=== PATIENT | female | born 1930 | race Caucasian/White ===

== ENCOUNTER 2019-09-07 11:26 | Inpatient (IN) | payer OTHER ==
--- OUTSIDE RECORDS SUMMARY | 2019-09-07 11:35 | XMS REPORT ---
:1930 Author Organization [facility] t Address [address] [place] [address] Dr. Denis [address] [place] [address] Care Team Providers Name Role Phone NILS JARQUIN Unavailable Unavailable Problems This patient has no known problems. Allergies, Adverse Reactions, Alerts This patient has no known allergies or adverse reactions. Medications This patient has no known medications. Results Test Description Test Time Test Comments Text Results Atomic Results Result Comments POCT-ACT 2019-01-19 11:44:00 Test Item Value Reference Range Comments ACTIVATED CLOTTING TIME (BEAKER) 175 sec Reference Range: 74-137 seconds, (test code = 441) Baseline/TESTE D AT [address] [address]
--- OUTSIDE RECORDS SUMMARY | 2019-09-07 11:35 | XMS REPORT | Summary of Care ---
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 [place], [place] [address] [id number] [place], [place] Phone: [phone] Encounter Details Date Type Department Care Team Description 01/26/2019 Office Visit [facility] Milan Mann Post-op Follow-up Medicine Vascular MD Amari Surgery [address] [facility], [address] [facility] [address] [place] [address] [place] [address] [phone] Allergies No Known Allergiesdocumented as of this encounter (statuses as of 02/06/2019) Medications Medication Sig Dispensed Refills Start Date End Date Status clopidogrel (PLAVIX) TAKE 1 TABLET BY 3 12/08/2018 Active 75 MG tablet MOUTH EVERY DAY IN THE MORNING Coenzyme Q10 100 MG Take 100 mg by 0 Active CAPS mouth. levothyroxine levothyroxine 100 0 01/26/2018 Active (SYNTHROID) 100 MCG mcg tablet tablet verapamil (CALAN-SR) TAKE 1 TABLET BY 1 12/09/2018 Active 240 MG CR tablet MOUTH IN THE MORNING furosemide (LASIX) 20 TAKE ONE TABLET BY 1 9 Active MG tablet MOUTH EVERY MORNING montelukast TAKE 1 TABLET BY 1 12/05/2018 Active (SINGULAIR) 10 MG MOUTH EVERY MORNING tablet Levocetirizine TAKE 1 TABLET BY 1 10/20/2018 Active Dihydrochloride 5 MG MOUTH EVERY DAY TABS metoprolol metoprolol 0 03/11/2018 Active (TOPROL-XL) 50 MG XL succinate ER 50 mg tablet tablet,extended release 24 hr doxazosin (CARDURA) 2 doxazosin 2 mg 0 03/17/2018 Active MG tablet tablet fluticasone (FLONASE) fluticasone 0 Active 50 MCG/ACT nasal propionate 50 spray mcg/actuation nasal spray,suspension acetaminophen 325 mg Take 650 mg by 0 Active tablet mouth. 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 documented as of this encounter Last Filed Vital Signs Vital Sign Reading Time Taken Comments Blood Pressure 155/69 01/26/2019 4:27 PM CDT Pulse 82 01/26/2019 4:27 PM CDT Temperature - - Respiratory Rate - - Oxygen Saturation - - Inhaled Oxygen Concentration - - Weight - - Height - - Body Mass Index - - documented in this encounter Patient Instructions Patient InstructionsBrant Mcnamara CMA - 01/26/2019 5:25 PM CDTThank you for choosing [facility]. You may receive a survey in the mail. Please provide comments to let us know how we can improve our patient care. Instructions for your care: Patient will follow up in 3 months with dvt study Milan uPentes MD president and ceo Division of Vascular Surgery and Endovascular Therapy If you have any questions, please feel free to call us at: documented in this encounter Progress Notes Satya Harrison NP - 01/26/2019 3:15 PM CDT [facility] [address] [place] [address] [address], [place]. [address] Office: [phone] DATE OF VISIT: 01/26/19 PATIENT NAME: Martine Stoner : 1930 PCP / REFERRING PHYSICIAN: No primary care provider on file. / No primary physician on file. The patient presents today for a Vascular Surgery Postoperative Visit. The patient is status post L PFV, CFV, EIV, and CIV balloon angioplasty which was performed on 01/16/19 at the [facility]. The patient's leg symptoms have gradually improved. The patient's pain has decreased significantly with mild improvement noted in leg swelling. The patient denies fever, wound drainage, increasing redness, pus, increasing pain, increasing swelling. Post op problems reported: none. She has been able to ambulate without difficulty. BP 155/69 | Pulse 82 PHYSICAL EXAM: Constitutional: Well nourished, no signs of distress Cardiovascular: Normal rate, regular rhythm and normal heart sounds. No murmurs , rubs or gallops Pulmonary/Chest: Breath sounds normal. No respiratory distress. No adventitious sounds. Abdominal: Soft. No abdominal distension or tenderness. No masses palpated and no hepatomegaly. No organomegaly. No abdominal pulsatile mass noted. Musculoskeletal: Normal range of motion. No evidence of arthritis. Extremities: No edema, cyanosis or clubbing. Neurological: She is alert and oriented. No muscle weakness and normal gait. VASCULAR: Palpable femoral pulses were present bilaterally with palpable popliteal, dorsalis pedis and posterior tibial artery pulse. Saphenous vein ablation site and varicose vein incision are healing well without signs of infection. Diagnostic Sutdies: -The left CFV is partially compressible with mildly echogenic to echolucent like without dilation (subacute to chronic). -Partial compression of the central FV all the remaining POP and above segments are normal. -Bilateral tibial veins are difficult to ascertain. However, the left PTVs are seen normal. Assessment & Plan: S/p L PFV, CFV, EIV, and CIV balloon angioplasty- The patient is doing well. Patient is to continue with daily compression stocking. Patient is advised to continue with daily exercise regimen with 30 minutes of aerobic activity daily and five times per week. Return to vascular clinic in 3 month(s) with repeat venous duplex. Satya Harrison NP-Dali Nurse Practitioner - Vascular Surgery documented in this encounter Plan of Treatment Date Type Specialty Care Team Description 04/08/2019 Office Visit Hematology and Oncology Miki Maynard MD [address] [place] [address] [phone] 04/27/2019 Ancillary Procedure Vascular Surgery 04/27/2019 Office Visit Vascular Surgery Milan Mann MD [address] [facility] [address] [place], [place] [address] [phone] Name Type Priority Associated Diagnoses Order S chedule US VENOUS LEG Imaging Routine Deep vein thrombosis 1 Occu rrences starting BILATERAL (DVT) of non-extremity 01/26 until vein, unspecified 01/27/2020 chronicity Health Maintenance Due Date Last Done Comments MEDICARE AWV 1930 TETANUS SHOT (ADULT) 1946 FALL SCREEN 1996 OSTEOPOROSIS SCREENING 1996 PNEUMOVAX >=65 (PPSV23) 1996 PREVNAR >= 65 (PCV13) 1996 FLU VACCINE > 6 MONTHS 12/11/2018 documented as of this encounter Results Not on filedocumented in this encounter Visit Diagnoses Diagnosis Deep vein thrombosis (DVT) of non-extrem ity vein, unspecified chronicity - Primary documented in this encounter Insurance Payer Benefit Plan / Subscriber ID Effective Dates Phone Addre ss Type Group [employer] MED[employer]ARE PLAN PPO xxxxxxxx 2015-Present [address] Medicare - [employer] [place] [id number] documented as of this encounter"
--- NOTE | 2019-09-07 12:27 | RAD REPORT ---
EXAM DESCRIPTION: Rachid Single View09/07/2019 12:18 pm CLINICAL HISTORY: Shortness of breath COMPARISON: 2017 FINDINGS: Mild bilateral interstitial lung opacities. The heart is mildly to moderately enlarged IMPRESSION: Mild CHF
[2019-09-07 12:46] LABS: Absolute Lymphocytes (CBC) 0.9 K/uL (0.7-4.9); Basophils % 0.8 % (0-1.3); Hematocrit 42.4 % (36.0-45.0); Lymphocytes % 16.3 % (15.3-44.8); MPV 8.6 fL (7.6-11.3); RBC Red Blood Cell Count 4.28 M/uL (3.86-4.86)
[2019-09-07 12:55] LABS: Protime INR 1.02
[2019-09-07 13:05] LABS: Albumin 3.7 g/dL (3.4-5.0); Bilirubin Direct 0.2 mg/dL (0-0.2); Bilirubin Total 0.6 mg/dL (0.2-1.0); C-Reactive Protein 6.22 mg/L (<3.00); Ferritin 35.7 ng/mL (8-388); Potassium 4.3 mmol/L (3.5-5.1); Protein, Total 7.1 g/dL (6.4-8.2); Troponin (Emerg Dept Use Only) 0.02 ng/mL (0.0-0.045)
--- NOTE | 2019-09-07 14:25 | ER ---
Nurse's Notes [facility] Name: Martine Stoner Age: 89 yrs Sex: Female : 1930 Arrival Date: 09/07/2019 Time: 11:28 Bed 4 Private MD: Yobany Langston T Diagnosis: Hypoxemia;Dyspnea, unspecified;Pulmonary edema Presentation: 09/06 11:32 Chief complaint: Patient states: SOB that began yesterday. Denies cough, denies chest aa5 pain, denies vomiting. Reports nausea. 11:32 Coronavirus screen: Surgical mask placed on patient. Patient moved to private room, aa5 placed in contact and droplet isolation with eye protection until further assessment. Patient denies a cough. Patient reports shortness of breath or difficulty breathing. Patient denies measured and/or subjective temperature greater than 100.4F prior to today's visit. Patient denies travel on a cruise ship or to a country the [facility] currently lists as an affected area. Patient denies contact with known and/or suspected case of COVID-19. Ebola Screen: Patient negative for fever greater than or equal to 101.5 degrees Fahrenheit, and additional compatible Ebola Virus Disease symptoms. Initial Sepsis Screen: Does the patient meet any 2 criteria? RR > 20 per min. HR > 90 bpm. Yes Does the patient have a suspected source of infection? No. Patient's initial sepsis screen is negative. Risk Assessment: Do you want to hurt yourself or someone else? Patient reports no desire to harm self or others. Onset of symptoms was August 2019. 11:32 Method Of Arrival: Wheelchair aa5 11:32 Acuity: LEANDRA 2 aa5 Triage Assessment: 12:20 Respiratory: the patient has mild shortness of breath. sv Historical: - Allergies: 11:32 tolmetin; aa5 - PMHx: 11:32 DVT; High Cholesterol; Hypertension; Hypothyroidism; PE; aa5 - Immunization history:: Adult Immunizations up to date. - Family history:: not pertinent. - Social history:: Smoking status: Patient denies any tobacco usage or history of. - Hospitalizations: : No recent hospitalization is reported. Screenin:25 Abuse screen: Denies threats or abuse. Denies injuries from another. Nutritional jl7 screening: No deficits noted. Tuberculosis screening: No symptoms or risk factors identified. Fall Risk IV access (20 points). Total Orellana Fall Scale indicates No Risk (0-24 pts). Assessment: 12:20 General: Appears in no apparent distress. comfortable, well developed, Behavior is sv calm, cooperative, appropriate for age. Pain: Denies pain. Neuro: Level of Consciousness is awake, alert, obeys commands, Oriented to person, place, time, situation, Moves all extremities. Full function. Cardiovascular: Patient's skin is warm and dry. Pulses are palpable in right radial artery and left radial artery Rhythm is atrial fibrillation. Respiratory: Reports shortness of breath at rest on exertion Airway is patent Respiratory effort is even, unlabored, Respiratory pattern is symmetrical, tachypnea. Derm: Skin is pale. Musculoskeletal: Range of motion: intact in all extremities. 12:25 Reassessment: COVID-19 swab obtained and taken to the outside lab. sv 13:20 Reassessment: Patient appears in no apparent distress at this time. Patient and/or sv family updated on plan of care and expected duration. Pain level reassessed. Patient is alert, oriented x 3, equal unlabored respirations, skin warm/dry/pink. 14:35 Reassessment: Patient appears in no apparent distress at this time. Patient and/or sv family updated on plan of care and expected duration. Pain level reassessed. Patient is alert, oriented x 3, equal unlabored respirations, skin warm/dry/pink. 15:00 Reassessment: Dr Coles at the bedside. sv 16:03 Reassessment: Patient appears in no apparent distress at this time. Patient and/or sv family updated on plan of care and expected duration. Pain level reassessed. Patient is alert, oriented x 3, equal unlabored respirations, skin warm/dry/pink. 17:45 Reassessment: Patient appears in no apparent distress at this time. Patient and/or sv family updated on plan of care and expected duration. Pain level reassessed. Patient is alert, oriented x 3, equal unlabored respirations, skin warm/dry/pink. Vital Signs: 11:32 BP 141 / 98; Pulse 105; Resp 26 S; Temp 98.1(O); Pulse Ox 87% on R/A; Pain 0/10; aa5 11:34 Pulse Ox 95% on 2 lpm NC; aa5 12:00 BP 107 / 81; Pulse 84; Resp 25; Pulse Ox 99% on 2 lpm NC; sv 13:24 BP 121 / 79; Pulse 98; Resp 14; Pulse Ox 99% on 2 lpm NC; sv 14:30 BP 112 / 71; Pulse 80; Resp 26; Pulse Ox 99% on 2 lpm NC; sv 15:00 BP 110 / 70; Pulse 82; Resp 22; Pulse Ox 98% on 2 lpm NC; sv 16:02 BP 119 / 54; Pulse 74; Resp 22; Pulse Ox 98% on 2 lpm NC; sv 16:47 BP 110 / 68; Pulse 79; Resp 16; Temp 98; Pulse Ox 97% ; sv 17:47 BP 101 / 69; Pulse 72; Resp 17; Pulse Ox 98% on 2 lpm NC; sv ED Course: 11:28 Patient arrived in ED. ag5 11:28 Yobany Langston MD is Private Physician. ag5 11:32 Arm band placed on. aa5 11:34 Manoj Black MD is Attending Physician. rn 11:44 Nirmala Vega RN is Primary Nurse. sv 11:51 Triage completed. aa5 12:00 Patient has correct armband on for positive identification. Placed in gown. Bed in low jl7 position. Call light in reach. Side rails up X2. electronic device monitor on. Pulse ox on. NIBP on. Warm blanket given. 12:19 CXR XRAY In Process Unspecified. EDMS 12:23 First set of blood cultures drawn by me. Inserted saline lock: 20 gauge in right wrist, sv using aseptic technique. Blood collected. Flushed right with 5 ml normal saline. 12:24 EKG done, by eeg tech. reviewed by Manoj Black MD. at1 12:25 Flu and/or RSV swab sent to lab. Strep swab sent to lab. sv 12:29 Second set of blood cultures drawn by me. sv 12:46 Awaiting lab results, Awaiting radiology results. sv 14:24 Sourav Coles MD is Hospitalizing Provider. rn 16:03 Awaiting bed assignment. sv 17:53 No provider procedures requiring assistance completed. Patient admitted, IV remains in sv place. intact. Administered Medications: 14:35 Drug: Lasix 20 mg Route: IVP; Site: left wrist; sv 15:01 Follow up: Response: No adverse reaction sv Outcome: 14:24 Decision to Hospitalize by Provider. rn 17:53 Admitted to Tele accompanied by tech, via wheelchair, room 413, with oxygen, with sv chart, Report called to Janine FAJARDO 17:53 Condition: stable 17:53 Instructed on the need for admit. 18:01 Patient left the ED. sv Signatures: Dispatcher [employer] Nirmala Porter RN RN sv Manoj Black MD MD rn Calderon, Audri RN RN aa5 Arlyn Peralta, tele tech EKG Tat1 Migue Howard RN RN jl7 Alisa Mike ag5 Corrections: (The following items were deleted from the chart) 17:47 16:47 BP 110 / 68; Pulse 79bpm; Resp 16bpm; Pulse Ox 97%; sv sv
--- NOTE | 2019-09-07 14:25 | EDPHYS ---
Physician Documentation [facility] Name: Martine Stoner Age: 89 yrs Sex: Female : 1930 Arrival Date: 09/07/2019 Time: 11:28 Bed 4 Private MD: Yobany Langston T ED Physician Manoj Black HPI: 09/06 12:18 This 89 yrs old Female presents to ER via Wheelchair with complaints of rn Breathing Difficulty. 12:18 The patient has shortness of breath at rest, with light activity. Onset: The rn symptoms/episode began/occurred yesterday. Duration: The symptoms are continuous. The patient's shortness of breath is aggravated by exertion, light activity. Severity of symptoms: At their worst the symptoms were moderate in the emergency department the symptoms are unchanged. The patient has not experienced similar symptoms in the past. The patient has not recently seen a physician. Reports sob since yesterday, + subjective fever, reports feels similar to when had pneumonia in past. No trauma. NO urinary symptoms. NO hemoptysis. 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 . Historical: - Allergies: 11:32 tolmetin; aa5 - PMHx: 11:32 DVT; High Cholesterol; Hypertension; Hypothyroidism; PE; aa5 - Immunization history:: Adult Immunizations up to date. - Family history:: not pertinent. - Social history:: Smoking status: Patient denies any tobacco usage or history of. - Hospitalizations: : No recent hospitalization is reported. 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 rn 12:16 Constitutional: This is a well developed, well nourished patient who is awake, alert rn Head/Face: Normocephalic, atraumatic. ENT: dry MM, no stridor Cardiovascular: Tachycardic, irregular, intact and equal distal pulses Respiratory: Mild tachypnea, no retractions Abdomen/GI: soft, non-tender Skin: Warm, dry MS/ Extremity: Pulses equal, no cyanosis. Neurovascular intact. Full, normal range of motion. Equal circumference. Neuro: Awake and alert, GCS 15, oriented to person, place, time, and situation. Cranial nerves II-XII grossly intact. Motor strength 5/5 in all extremities. Sensory grossly intact. Vital Signs: 11:32 BP 141 / 98; Pulse 105; Resp 26 S; Temp 98.1(O); Pulse Ox 87% on R/A; Pain 0/10; aa5 11:34 Pulse Ox 95% on 2 lpm NC; aa5 12:00 BP 107 / 81; Pulse 84; Resp 25; Pulse Ox 99% on 2 lpm NC; sv 13:24 BP 121 / 79; Pulse 98; Resp 14; Pulse Ox 99% on 2 lpm NC; sv 14:30 BP 112 / 71; Pulse 80; Resp 26; Pulse Ox 99% on 2 lpm NC; sv 15:00 BP 110 / 70; Pulse 82; Resp 22; Pulse Ox 98% on 2 lpm NC; sv 16:02 BP 119 / 54; Pulse 74; Resp 22; Pulse Ox 98% on 2 lpm NC; sv 16:47 BP 110 / 68; Pulse 79; Resp 16; Temp 98; Pulse Ox 97% ; sv 17:47 BP 101 / 69; Pulse 72; Resp 17; Pulse Ox 98% on 2 lpm NC; sv MDM: 11:34 Patient medically screened. rn 14:22 Differential diagnosis: Chronic Obstructive Pulmonary Disease Myocardial Infarction rn pneumonia, Pneumothorax pulmonary edema, Pulmonary Embolism Sepsis flu, COVID-19, pulmonary edema, interstitial pneumonia. Data reviewed: vital signs, nurses notes, lab test result(s), EKG, radiologic studies, plain films, and as a result, I will admit patient. Test interpretation: by ED physician or midlevel provider: ECG, plain radiologic studies, CXR with bilateral interstitial edema. Counseling: I had a detailed discussion with the patient and/or guardian regarding: the historical points, exam findings, and any diagnostic results supporting the discharge/admit diagnosis, lab results, radiology results, the need for further work-up and treatment in the hospital. Response to treatment: the patient's symptoms have mildly improved after treatment, and as a result, I will admit patient. Admission orders: after a detailed discussion of the patient's condition and case, the admit orders are written by me. ED course: Pt with new diagnosis afib, rate controlled, admitted to Dr. Coles for afib/pulmonary edema, and hypoxemia. . 09/06 11:47 Order name: Blood Culture Adult (2) rn 09/06 11:47 Order name: BMP; Complete Time: 13:44 rn 09/06 11:47 Order name: C-Reactive Protein; Complete Time: 13:44 rn 09/06 11:47 Order name: CBC with Diff; Complete Time: 13:44 rn 09/06 11:47 Order name: COVID-19 rn 09/06 11:47 Order name: Ferritin; Complete Time: 13:44 rn 09/06 11:47 Order name: Flu; Complete Time: 13:44 rn 09/06 11:47 Order name: Lactate; Complete Time: 12:48 rn 09/06 11:47 Order name: LFT's; Complete Time: 13:44 09/06 11:47 Order name: Lipase; Complete Time: 13:44 rn 09/06 11:47 Order name: Procalcitonin; Complete Time: 13:44 09/06 11:47 Order name: PT-INR; Complete Time: 13:44 09/06 11:47 Order name: Ptt, Activated; Complete Time: 13:44 09/06 11:47 Order name: Strep; Complete Time: 13:44 09/06 11:47 Order name: Troponin (emerg Dept Use Only); Complete Time: 13:44 09/06 11:47 Order name: Urine Microscopic Only rn 09/06 12:15 Order name: BNP; Complete Time: 13:44 rn 09/06 13:04 Order name: Throat Culture EDUT 09/06 16:13 Order name: Thyroid Stimulating Hormone EDUT 09/06 16:13 Order name: CBC with Automated Diff EDUT 09/06 16:13 Order name: CBC with Automated Diff EDMS 09/06 16:13 Order name: Comprehensive Metabolic Panel EDUT 09/06 16:13 Order name: Comprehensive Metabolic Panel EDUT 09/06 16:13 Order name: Magnesium EDMS 09/06 16:13 Order name: Magnesium EDMS 09/06 16:13 Order name: Magnesium [facility] 09/06 16:13 Order name: Magnesium [facility] 09/06 16:13 Order name: Troponin I [facility] 09/06 16:13 Order name: Troponin I [facility] 09/06 16:13 Order name: Troponin I [facility] 09/06 11:47 Order name: CXR XRAY; Complete Time: 12:48 rn 09/06 11:47 Order name: EKG; Complete Time: 11:50 rn 09/06 11:47 Order name: Cardiac monitoring; Complete Time: 12:24 rn 09/06 11:47 Order name: Droplet/Contact Precautions; Complete Time: 12:24 rn 09/06 11:47 Order name: EKG - Nurse/Tech; Complete Time: 12:24 rn 09/06 11:47 Order name: IV Start; Complete Time: 12:24 rn 09/06 11:47 Order name: Labs collected and sent; Complete Time: 12:24 rn 09/06 11:47 Order name: O2 Per Protocol; Complete Time: 12:24 rn 09/06 11:47 Order name: O2 Sat Monitoring; Complete Time: 12:24 rn 09/06 14:21 Order name: Diet Heart Healthy; Complete Time: 14:22 aa5 09/06 16:13 Order name: CONS Pharmacy Consult [facility] 09/06 16:13 Order name: CONS Physician Consult [facility] 09/06 16:13 Order name: CONS Physician Consult [facility] 09/06 16:13 Order name: Physical Therapy Consult [facility] 09/06 16:13 Order name: Echo with Doppler [facility] 09/06 16:20 Order name: Social Service Consult [facility] EC:16 Rate is 100 beats/min. Rhythm is irregularly irregular. QRS [place] is Normal. QRS rn interval is normal. QT interval is normal. No Q waves. T waves are Normal. No ST changes noted. Clinical impression: Atrial Fibrillation. Interpreted by me. Reviewed by me. Administered Medications: 14:35 Drug: Lasix 20 mg Route: IVP; Site: left wrist; sv 15:01 Follow up: Response: No adverse reaction sv Disposition: 09/07/19 14:24 Hospitalization ordered by Sourav Coles for Inpatient Admission. Preliminary diagnosis are Hypoxemia, Dyspnea, unspecified, Pulmonary edema. - Bed requested for Telemetry/MedSurg (Inpatient). - Status is Inpatient Admission. sv - Condition is Stable. - Problem is new. - Symptoms have improved. Signatures: Dispatcher [employer] EDNirmala Blank, RN RN Jill José RN RN dw Nieto, Roman, MD MD rn Calderon, Urvashi, RN RN aa5 Corrections: (The following items were deleted from the chart) 12:28 12:16 Rate is 100 beats/min. Rhythm is irregularly irregular. QRS [place] is Normal. QRS rn interval is normal. QT interval is normal. No Q waves. T waves are Normal. No ST changes noted. Clinical impression: Atrial Fibrillation. Interpreted by me. Reviewed by me. rn 12:44 11:47 Ramos ordered. rn cristian 17:18 14:24 Hospitalization Ordered by Sourav Coles MD for Inpatient Admission. Preliminary dw diagnosis is Hypoxemia; Dyspnea, unspecified; Pulmonary edema. Bed requested for Telemetry/MedSurg (Inpatient). Status is Inpatient Admission. Condition is Stable. Problem is new. Symptoms have improved. rn 18:01 17:18 09/07/2019 14:24 Hospitalization Ordered by Sourav Coles MD for Inpatient sv Admission. Preliminary diagnosis is Hypoxemia; Dyspnea, unspecified; Pulmonary edema. Bed requested for Telemetry/MedSurg (Inpatient). Status is Inpatient Admission. Condition is Stable. Problem is new. Symptoms have improved. dw
[2019-09-07] MEDS ORDERED: FUROSEMIDE 20 MG/ 2ML VIAL ONE (14:29)
[2019-09-07] MEDS ORDERED: ONDANSETRON 4 MG/2 ML VIAL IV PRN (16:04)
[2019-09-07] MEDS ORDERED: ALBUTEROL 2.5 MG/3 ML NEB SOL NEB PRN (16:04)
[2019-09-07] MEDS ORDERED: MORPHINE 2 MG/ML SYR IV PRN (16:04)
[2019-09-07] MEDS ORDERED: LORAZEPAM 0.5 MG TABLET PO PRN (16:07)
[2019-09-07] MEDS ORDERED: HYDRALAZINE HCL 20 MG/ML VIAL IV PRN (16:07)
--- NOTE | 2019-09-07 16:17 | P.HP ---
Certification for Inpatient With expected LOS: >2 Midnights Patient will require the following post-hospital care: Home Health Services Practitioner: I am a practitioner with admitting privileges, knowledge of patient current condition, hospital course, and medical plan of care. Services: Services provided to patient in accordance with Admission requirements found in Title 42 Section 412.3 of the Code of Federal Regulations Patient History Date of Service: 09/07/19 Reason for admission: Shortness of breath History of Present Illness: 89-year-old female past medical history of HTN, DVT, residing in the community with the family, presented because of increasing shortness of breath since the last 1 week initially on exertion but currently at rest, shortness of breath associated with mild cough, no sputum. Patient denies any fever or chills. She denies any recent travel. She denies any calf pain. She has a history of right lower extremity DVT 2 years ago that was treated with to Lovenox. She is on show foul current home medication tsh she takes only 2 medications. She denies any headache or dizziness. On arrival in the ED she had low O2 sats in the 80s. She has been ruled out for covid 19 testing. Chest x-ray shows bilateral pulmonary congestive changes. EKG on presentation shows AFib. She does not have a history of AFib in the past. She admits to persistent lower extremity swelling. She denies any dysuria or flank pain although noted creatinine of 1.67. She is being admitted for CHF as well as new onset AFib Allergies tolmetin sodium [From Tolectin] Allergy (Severe, Verified 04/19/15 12:37) Shortness of breath Home Medications: Ascorbic Acid [Vitamin C*] 500 mg PO DAILY 04/19/15 Aspirin [Aspirin EC 81 MG] 81 mg PO DAILY 04/19/15 Fluticasone [Flonase 50MCG Nasal [place]*] 2 sprays NS DAILY PRN 04/19/15 Levothyroxine [Synthroid*] 100 mcg PO DAILY 04/19/15 Metoprolol Succinate [Toprol Xl*] 25 mg PO DAILY 04/19/15 Montelukast [Singulair*] 10 mg PO DAILY 04/19/15 Verapamil HCl [Verapamil ER] 240 mg PO DAILY 04/19/15 Acetaminophen 325 mg PO Q4H PRN 04/13/17 Cholecalciferol (Vitamin D3) [Vitamin D 5,000 IU Cap*] 5,000 unit PO DAILY 04/13/17 Cyanocobalamin (Vitamin B-12) [Vitamin B-12] 1,000 mcg PO DAILY 04/13/17 Doxazosin Mesylate 2 mg PO DAILY 04/13/17 Furosemide [Lasix*] 20 mg PO DAILY 04/13/17 Gluc Salas/Chondro Salas A/Vit C/Mn [Glucosamine-Chondroitin Cap] 750 mg PO BID 04/13/17 Ubidecarenone [Co Q-10] 100 mg PO DAILY 04/13/17 Enoxaparin Sodium [Lovenox 100 MG INJ*] 90 mg SQ Q12HR #90 syr 04/16/17 - Past Medical/Surgical History Diabetic: No -: Dyslipidemia -: DVT -: HTN -: Hypothyroidism -: Venous insufficiency -: Hip replacement -: Back infusion -: Hystrectomy -: Appendectomy -: TMJ mental plate both jaws - Family History Father -: Cancer Mother -: Hypertension - Social History Smoking Status: Never smoker Alcohol use: Yes CD- Drugs: No Caffeine use: Yes Place of Residence: Home Review of Systems 10-point ROS is otherwise unremarkable Physical Examination - Physical Exam General: Alert, In no apparent distress, Oriented x3, Obese HEENT: Atraumatic, Normocephalic, PERRLA, Mucous membr. moist/pink Neck: Supple, 2+ carotid pulse no bruit, JVD not distended Respiratory: Diminished, Crackles/rales Cardiovascular: Normal pulses, Normal S1 S2, Edema, Irregular heart rate/rhythm Capillary refill: <2 Seconds Gastrointestinal: Normal bowel sounds, Soft and benign, Non-distended, No ascites, No tenderness Musculoskeletal: No clubbing, Swelling Integumentary: No rashes, No breakdown Neurological: Normal speech, Normal strength at 5/5 x4 extr, Normal tone External genitalia: Edema - Studies Laboratory Data (last 24 hrs) 09/07/19 12:23: PT 12.0, INR 1.02, APTT 30.3 09/07/19 12:23: WBC 5.7, Hgb 14.0, Hct 42.4, Plt Count 237 09/07/19 12:23: Sodium 142, Potassium 4.3, BUN 24 H, Creatinine 1.67 H, Glucose 97, Total Bilirubin 0.6, AST 13 L, ALT 19, Alkaline Phosphatase 63, Lipase 116 Microbiology Data (last 24 hrs): 09/07/19 12:25 Nasopharnyx Coronavirus COVID-19 PCR - Final 09/07/19 12:25 Nasopharnyx Influenza Type A Antigen Screen - Final 09/07/19 12:25 Nasopharnyx Influenza Type B Antigen Screen - Final 09/07/19 12:25 Throat Group A Streptococcus Rapid Screen - Final Imagings Data: FINDINGS: Mild bilateral interstitial lung opacities. The heart is mildly to moderately enlarged IMPRESSION: Mild CHF Assessment and Plan - Problems (Diagnosis) (1) A-fib Current Visit: Yes Status: Acute (2) Diastolic CHF, acute on chronic Current Visit: Yes Status: Acute (3) CKD (chronic kidney disease) stage 3, GFR 30-59 ml/min Onset Date: 04/15/17 Current Visit: No Status: Chronic (4) HTN (hypertension) Onset Date: 04/15/17 Current Visit: No Status: Chronic Qualifiers: - Advance Directives Does patient have a Living Will: Yes Does patient have a Durable POA for Healthcare: Yes Physician Review: Patient Assessed, Agree with Above Assessment and Plan Physician Review Additional Text: Acute pulmonary edema-likely due to Diastalic CHF exacerbation -we start low-dose diuretics would be best b.i.d. -will obtain echo -will consult Cardiology -monitor intake and output -follow daily weight Atrial fibrillation-new onset, rate spontaneously improved from 100 to 80s now -will continue to monitor -we start anticoagulation with low-dose Eliquis Hypertension-controlled, home verapamil - given borderline low blood pressure, will hold off medications for now to allow for diuresis DVT prophylaxis-plan to start Eliquis l Disposition-possible 1-2 days Time Spent Managing Pts Care (In Minutes): 65
[2019-09-07 17:56] LABS: Thyroid Stimulating Hormone 1.35 uIU/mL (0.360-3.740); Troponin I 0.03 ng/mL (0.0-0.045)
[2019-09-07] MEDS: PANTOPRAZOLE 40MG TABLET PO SCH (19:23)
[2019-09-07] MEDS: CEFTRIAXONE/SWI 1gm 1 GM/10 ML SYR IV SCH (19:23)
[2019-09-07] MEDS: IPRATROPIUM BROM 0.5MG/2.5ML NEB SCH (20:00)
--- NOTE | 2019-09-07 20:12 | EKG ---
Test Date: 2019-09-07 Test Time: 12:10:33 Hearing Therapy Director: ANDRA MEASUREMENT RESULTS: Intervals: Rate: 100 TN: QRSD: 78 QT: 366 QTc: 472 [place]: P: TN: QRS: -1 T: 63 INTERPRETIVE STATEMENTS: Atrial fibrillation Abnormal ECG Compared to ECG 04/12/2017 17:05:11 Sinus rhythm no longer present Sinus arrhythmia no longer present Electronically Signed On 09-07-19 20:10:55 CDT by Tyler Johnson
[2019-09-07] MEDS: BUMETANIDE 1 MG/4 ML VIAL IV SCH (20:55)
[2019-09-07] MEDS: APIXABAN 2.5 MG TABLET PO SCH (20:55)
[2019-09-07 21:24] LABS: Urine Bacteria <20 /HPF (<20); Urine Culture Reflex Order REFLEXED; Urine Mucus 2+ /HPF (NONE SEEN); Urine RBC <5 /HPF (NONE SEEN)
[2019-09-08] MEDS: IPRATROPIUM BROM 0.5MG/2.5ML NEB SCH ×4 (01:35→20:20)
[2019-09-08 04:20] LABS: Absolute Lymphocytes (CBC) 0.8 K/uL (0.7-4.9); Basophils % 0.6 % (0-1.3); Hematocrit 39.7 % (36.0-45.0); Lymphocytes % 16.2 % (15.3-44.8); MPV 8.4 fL (7.6-11.3); RBC Red Blood Cell Count 3.98 M/uL (3.86-4.86)
[2019-09-08 04:35] LABS: Albumin 3.2 g/dL (3.4-5.0); Bilirubin Total 0.3 mg/dL (0.2-1.0); Magnesium 1.9 mg/dL (1.8-2.4); Potassium 4.6 mmol/L (3.5-5.1); Protein, Total 6.2 g/dL (6.4-8.2)
[2019-09-08] MEDS: LEVOTHYROXINE SOD 0.1 MG TAB PO SCH (05:48)
[2019-09-08] MEDS ORDERED: HOME MED 1 EA UNK (Levocetirizine Dihydrochloride [Allergy Relief] 5 MG) PO SCH (09:00)
[2019-09-08] MEDS: APIXABAN 2.5 MG TABLET PO SCH ×2 (09:04→21:35)
[2019-09-08] MEDS: CETIRIZINE HCL 5 MG TABLET PO SCH (09:04)
[2019-09-08] MEDS: PANTOPRAZOLE 40MG TABLET PO SCH ×2 (09:04→17:43)
[2019-09-08] MEDS: BUMETANIDE 1 MG/4 ML VIAL IV SCH ×2 (09:04→21:43)
[2019-09-08] MEDS: ASPIRIN EC 81 MG TAB PO SCH (09:04)
[2019-09-08] MEDS: METOPROLOL TAR 25 MG TAB PO SCH ×2 (10:23→17:43)
--- NOTE | 2019-09-08 11:14 | ECHO ---
HEIGHT: 5 ft 8 in WEIGHT: 210 lb 14.4 oz DATE OF STUDY: 09/08/[address]: Sourav Coles MD 2-DIMENSIONAL: YES M.MODE: YES DOPPLER: YES COLOR FLOW: YES TDS: PORTABLE: DEFINITY: BUBBLE STUDY: DIAGNOSIS: CEREBRAL VASCULAR ACCIDENT, RULE OUT VEGETATION CARDIAC HISTORY: CATHERIZATION: NO SURGERY: NO PROSTHETIC VALVE: NO PACEMAKER: NO MEASUREMENTS (cm) DIASTOLIC (NORMALS) SYSTOLIC (NORMALS) IVSd 1.1 (0.6-1.2) LA Diam 3.6 (1.9-4.0) LVEF 53% LVIDd 3.7 (3.5-5.7) LVIDs 2.7 (2.0-3.5) %FS 27% LVPWd 1.2 (0.6-1.2) Ao Diam 2.6 (2.0-3.7) 2 DIMENSIONAL ASSESSMENT: RIGHT ATRIUM: NORMAL LEFT ATRIUM: NORMAL RIGHT VENTRICLE: NORMAL LEFT VENTRICLE: NORMAL SIZE TRICUSPID VALVE: NORMAL MITRAL VALVE: MITRAL ANNULAR CALCIFICATION PULMONIC VALVE: NOT SEEN WELL AORTIC VALVE: SCLEROSIS PERICARDIAL EFFUSION: SMALL AORTIC ROOT: NORMAL LEFT VENTRICULAR WALL MOTION: HYPERDYNAMIC - NORMAL EJECTION FRACTION DOPPLER/COLOR FLOW: MILD TRICUSPID REGURGITATION. NORMAL RIGHT VENTRICULAR SYSTOLIC PRESSURE. COMMENTS: NORMAL LEFT VENTRICULAR SIZE AND EJECTION FRACTION. HYPERDYNAMIC LEFT VENTRICLE. SMALL PERICARDIAL EFFUSION. MITRAL ANNULAR CALCIFICATION. AORTIC SCLEROSIS, NO STENOSIS. NO OBVIOUS VEGETATION. TECHNOLOGIST: LIDIA DELEON
--- NOTE | 2019-09-08 12:57 | PN ---
Date of Progress Note: 09/08/2019 Ms. Stoner was admitted and seen on 09/06/2017. She was admitted by Dr. Coles. She was admitted fo r CHF, atrial fibrillation, acute renal failure. Overnight, she has done well. She is feeling a lot better than she felt yesterday. She is not having any chest pain. She had diuresed well on IV Bume x. She is known to have normal coronaries from the past. She is also known to have 100% occlusion o f her left internal carotid artery with 50% occlusion of her right carotid artery. Echocardiogram is pending. I think with her risk factors and her atrial fibrillation, which is rate controlled, I wou ld continue her verapamil and agree with Eliquis use at 2.5 mg b.i.d. We will see what her echo show s, but as far as I am concerned she can go home whenever it is okay with Dr. Coles. WILLIAM/CARLOS MANUEL Voice ID: [id number] Report ID: [id number]
--- NOTE | 2019-09-08 13:35 | P.PN ---
Subjective Date of Service: 09/08/19 Chief Complaint: Shortness of breath Subjective: No new changes, No C/O voiced, New changes, C/O voiced (of feeling warmth today -still elevated HR this am , improved after started on toprol) Physical Examination - Vital Signs Temperature: 98.5 F Blood Pressure: 118/59 Pulse: 98 Respirations: 27 Pulse Ox (%): 92 - Physical Exam General: Alert, In no apparent distress, Oriented x3 HEENT: Atraumatic, Normocephalic Neck: Supple, 2+ carotid pulse no bruit Respiratory: Crackles/rales (Improving bilateral) Gastrointestinal: Normal bowel sounds, Soft and benign, Non-distended, W/out succussion splash Neurological: Normal speech, Normal strength at 5/5 x4 extr - Studies Microbiology Data (last 24 hrs): 09/07/19 12:25 Nasopharnyx Coronavirus COVID-19 PCR - Final 09/07/19 12:25 Nasopharnyx Influenza Type A Antigen Screen - Final 09/07/19 12:25 Nasopharnyx Influenza Type B Antigen Screen - Final 09/07/19 12:25 Throat Group A Streptococcus Rapid Screen - Final Assessment And Plan - Current Problems (Diagnosis) (1) A-fib Current Visit: Yes Status: Acute (2) Diastolic CHF, acute on chronic Current Visit: Yes Status: Acute (3) CKD (chronic kidney disease) stage 3, GFR 30-59 ml/min Onset Date: 04/15/17 Current Visit: No Status: Chronic (4) HTN (hypertension) Onset Date: 04/15/17 Current Visit: No Status: Chronic Qualifiers: Physician Review: Patient Assessed, Agree with Above Assessment and Plan Physician Review Additional Text: Acute pulmonary edema-slowly improving -continue diuretics with Bumex -follow pending echo -cardiology evaluation with appreciated -likely due to Diastalic CHF exacerbation New onset Atrial fibrillation-improving with started metoprolol -continue low-dose Eliquis Hypertension-controlled, on metoprolol now, continue to hold home verapamil DVT prophylaxis-on Eliquis UTI-on empirical Rocephin, follow urine culture. Weakness-will consult PT/OT Disposition-possible in am if PT clears Time Spent Managing PTS Care (In Minutes): 35
--- NOTE | 2019-09-08 13:36 | CON ---
Date of Consultation: 09/07/2019 Reason For Consultation: Atrial fibrillation, acute renal failure, pulmonary edema. History Of Present Illness: Ms. Stoner is an 89-year-old woman. She has a history of hypertension, dy slipidemia, asthma, and since the hypothyroidism has had history of DVT and pulmonary embolus in the past. She came in with acute pulmonary edema, was noted to be in atrial fibrillation as well as mirtha l failure. Main complaint was shortness of breath. She denied any chest pain, nausea, vomiting, mac phoresis, PND, orthopnea, pedal edema, palpitations, or syncope. Past Medical History: As stated above. Allergies: TO TOLMETIN. Medications: At home include aspirin, Plavix, Lasix, doxazosin, Synthroid, Singulair, and verapamil. Review of Systems: Negative. Social History: Negative. Family History: Negative. Physical Examination: Vital Signs: She was in mild respiratory distress, atrial fibrillation, rate of 90, afebrile, blood pressure was 142/94. HEENT: Negative. Neck: Supple without any bruit, lymphadenopathy, JVD, or thyromegaly. Chest: Clear to auscultation and percussion on the right. She has some rales at the left base. Cardiac: Revealed atrial fibrillation. No murmurs, gallops, or rubs heard. Abdomen: Benign. Extremities: Revealed no clubbing, cyanosis, or edema. Diagnostic Data: Creatinine is 1.67. BNP is 5307. Her troponin was negative. Chest x-ray shows CH F. EKG showed atrial fibrillation, rate 100. She has had normal coronaries in the past by annabel gordillo in 2015. She also has known 100% left ICA and 50% right ICA that have not been followed since . Impression And Plan: 1.Acute on chronic diastolic congestive heart failure. She is on verapamil. She is on IV Bumex. I think we need to change her verapamil to a beta-quita. We need to continue IV Bumex and when she goes home, she should remain on Lasix. 2.Atrial fibrillation, probably chronic. I think she needs to be on a beta-quita and I agree with use of Eliquis 2.5 mg b.i.d. Echocardiogram is pending. 3.Hypertension. 4.Renal failure. Nephrology is following. 5.History of dyslipidemia. 6.History of hypothyroidism. 7.History of asthma. 8.History of pulmonary embolism and deep venous thrombosis. 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 Those have not been followed since. I think we need to continue diuresing her. Change with the beta-quita and continue the Eliquis, get an echocardiogram and we will see how she does in the morning. I think sometime down the road, i f she needs to have another carotid Doppler done, then we can do that as an outpatient. WILLIAM/CARLOS MANUEL Voice ID: [id number] Report ID: [id number]
--- NOTE | 2019-09-08 14:30 | P.CNS ---
Date of Consult: 09/08/19 Reason for Consult: Acute kidney injury/chronic kidney disease Requesting Physician: Sourav Coles Chief Complaint: Shortness of breath History of Present Illness: 89-year-old female patient with the medical hx significant for hypothyroidism, CHF, hypertension, atrial fibrillation, hyperlipidemia who was evaluated for episode of shortness of breath, found to have congestive heart failure exacerbation. She was started on diuretics and labs drawn revealed elevated creatinine with value of approximately 1.7. Cardiology was consulted for care and she was found to have diastolic dysfunction. In view of elevated creatinine there was concern for acute kidney injury/chronic kidney disease. The patient was asked to be evaluated by Nephrology. She does not have any personal history of kidney failure in the past. She denies use of nonsteroidal anti-inflammatory drugs. She denies any uremic symptomatology of nausea, vomiting, itching, excessive lethargy, abnormal taste in the month. Allergies tolmetin sodium [From Tolectin] Allergy (Severe, Verified 04/19/15 12:37) Shortness of breath Home medications list reviewed: Yes Home Medications: Ascorbic Acid [Vitamin C*] 500 mg PO DAILY 04/19/15 Fluticasone [Flonase 50MCG Nasal [place]*] 2 sprays NS DAILY PRN 04/19/15 Levothyroxine [Synthroid*] 100 mcg PO DAILY 04/19/15 Montelukast [Singulair*] 10 mg PO DAILY 04/19/15 Acetaminophen 325 mg PO Q4H PRN 04/13/17 Cholecalciferol (Vitamin D3) [Vitamin D 5,000 IU Cap*] 5,000 unit PO DAILY 04/13/17 Gluc Salas/Chondro Salas A/Vit C/Mn [Glucosamine-Chondroitin Cap] 750 mg PO BID 04/13/17 Ubidecarenone [Co Q-10] 100 mg PO DAILY 04/13/17 Clopidogrel Bisulfate [Plavix*] 75 mg PO DAILY 09/07/19 Levocetirizine Dihydrochloride [Allergy Relief] 5 mg PO DAILY 09/07/19 Amox/Clavulanate [Augmentin 500-125 mg Tab*] 500 mg PO BID #6 tab 09/09/19 Apixaban [Eliquis *] 2.5 mg PO BID #60 tablet 09/09/19 Bumetanide [Bumex] 1 mg PO BID #60 tablet 09/09/19 Magnesium Chloride [Mag Delay] 64 mg PO BID #60 tablet. 09/09/19 Metoprolol Tartrate [Lopressor*] 50 mg PO BID 6AM 6PM #120 tab 09/09/19 Pantoprazole [Protonix Tab*] 40 mg PO BIDAC tab 09/09/19 Saliva Stimulant Agents Comb.3 [Biotene Moisturizing Mouth] 44.3 ml MM QID 30 Days #1 bottle 09/09/19 - Past Medical/Surgical History Diabetic: No -: Dyslipidemia -: DVT -: HTN -: Hypothyroidism -: Venous insufficiency -: pulmonary embolism -: chronic kidney disease -: Hip replacement left -: Back infusion -: Hysterectomy -: Appendectomy -: TMJ mental plate both jaws - Family History Father Medical History: Cancer Mother Medical History: Hypertension - Social History Alcohol use: No CD- Drugs: No Caffeine use: No Place of Residence: Home Physical Examination Temp Pulse Resp BP Pulse Ox 98.5 F 98 H 27 H 118/59 L 92 09/08/19 13:35 09/08/19 13:35 09/08/19 13:35 09/08/19 13:35 09/08/19 13:35 General: Alert, Oriented x3 HEENT: Atraumatic, PERRLA Respiratory: Normal air movement Cardiovascular: No edema, Regular rate/rhythm, Normal S1 S2 Gastrointestinal: Normal bowel sounds Musculoskeletal: No clubbing Neurological: Normal speech, Normal strength at 5/5 x4 extr, Cranial nerves 3-12 intact Conclusions/Impression: CKD stage 3 vs CARLOS. UTI Hypertension Congestive heart failure exacerbation Hypothyroidism Atrial fibrillation. Plan: Present episode of elevated creatinine is deemed possibly due to cardiorenal syndrome type 2, however there is possibility of cardiorenal syndrome type 1 from acute congestive heart failure. She had been started on diuretics and she has improved significantly. Creatinine labs remained stable since admission though elevated. Will continue to avoid nephrotoxic medications and dose medications for her eGFR. We will monitor creatinine trend closely and obtain PTH, phosphorus level.
[2019-09-08] MEDS ORDERED: ALBUTEROL 2.5 MG/3 ML NEB SOL NEB PRN (17:00)
[2019-09-08] MEDS: CEFTRIAXONE/SWI 1gm 1 GM/10 ML SYR IV SCH (17:44)
[2019-09-09] MEDS: IPRATROPIUM BROM 0.5MG/2.5ML NEB SCH ×4 (02:30→19:40)
[2019-09-09 04:20] LABS: Absolute Lymphocytes (CBC) 1.5 K/uL (0.7-4.9); Basophils % 0.6 % (0-1.3); Hematocrit 38.3 % (36.0-45.0); Lymphocytes % 27.2 % (15.3-44.8); MPV 8.2 fL (7.6-11.3); RBC Red Blood Cell Count 3.87 M/uL (3.86-4.86)
[2019-09-09 04:28] LABS: Bilirubin Total 0.4 mg/dL (0.2-1.0); Magnesium 1.6 mg/dL (1.8-2.4); Potassium 3.7 mmol/L (3.5-5.1); Protein, Total 5.7 g/dL (6.4-8.2)
[2019-09-09] MEDS: METOPROLOL TAR 25 MG TAB PO SCH ×2 (06:18→16:52)
[2019-09-09] MEDS: LEVOTHYROXINE SOD 0.1 MG TAB PO SCH (06:20)
[2019-09-09] MEDS: BUMETANIDE 1 MG/4 ML VIAL IV SCH ×3 (08:42→18:29)
[2019-09-09] MEDS: APIXABAN 2.5 MG TABLET PO SCH ×2 (08:43→21:09)
[2019-09-09] MEDS: ASPIRIN EC 81 MG TAB PO SCH (08:43)
[2019-09-09] MEDS: CETIRIZINE HCL 5 MG TABLET PO SCH (08:43)
[2019-09-09] MEDS: PANTOPRAZOLE 40MG TABLET PO SCH ×2 (08:43→16:52)
--- NOTE | 2019-09-09 13:22 | P.PN ---
Subjective Date of Service: 09/09/19 Chief Complaint: Shortness of breath Subjective: No new changes, No C/O voiced (Still requiring nasal cannula O2) Physical Examination - Vital Signs Temperature: 97.7 F Blood Pressure: 132/63 Pulse: 105 Respirations: 16 Pulse Ox (%): 96 - Physical Exam General: Alert, In no apparent distress, Oriented x3 HEENT: Atraumatic, Normocephalic, PERRLA Neck: Supple, 2+ carotid pulse no bruit, JVD not distended Respiratory: Normal air movement, Crackles/rales Cardiovascular: No edema, Normal pulses, Regular rate/rhythm, Normal S1 S2 Gastrointestinal: Normal bowel sounds, Soft and benign, Non-distended Musculoskeletal: No clubbing, No swelling Neurological: Normal speech, Normal strength at 5/5 x4 extr - Studies Microbiology Data (last 24 hrs): 09/07/19 12:25 Throat Culture & Sensitivity - Final NORMAL UPPER RESPIRATORY NEAL GROWN. Medications List Reviewed: Yes Assessment And Plan - Current Problems (Diagnosis) (1) A-fib Current Visit: Yes Status: Acute (2) Diastolic CHF, acute on chronic Current Visit: Yes Status: Acute (3) CKD (chronic kidney disease) stage 3, GFR 30-59 ml/min Onset Date: 04/15/17 Current Visit: No Status: Chronic (4) HTN (hypertension) Onset Date: 04/15/17 Current Visit: No Status: Chronic Qualifiers: Physician Review: Patient Assessed, Agree with Above Assessment and Plan Physician Review Additional Text: Acute pulmonary edema-slowly improving -continue diuretics with Bumex, will switched to p.o. -cardiology evaluation with appreciated -likely due to Diastalic CHF exacerbation New onset Atrial fibrillation-improving with started metoprolol -continue low-dose Eliquis Hypertension-controlled, on metoprolol now, continue to hold home verapamil DVT prophylaxis-on Eliquis UTI-on empirical Rocephin, follow urine culture. Weakness-continue PT and OT Disposition-possible home today if able to wean down O2 to 1 L
[2019-09-09] MEDS ORDERED: MAGNESIUM CHLORIDE 64 MG TAB PO ONE (15:00)
--- NOTE | 2019-09-09 17:39 | P.PN ---
Subjective Date of Service: 09/09/19 Chief Complaint: Shortness of breath Subjective: No new changes, Improving Review of Systems 10-point ROS is otherwise unremarkable Physical Examination - Vital Signs Temperature: 97.5 F Blood Pressure: 132/60 Pulse: 80 Respirations: 16 Pulse Ox (%): 95 - Physical Exam General: Alert, Oriented x3 HEENT: Atraumatic, Normocephalic, PERRLA Respiratory: Clear to auscultation bilaterally Cardiovascular: Regular rate/rhythm, Normal S1 S2 Gastrointestinal: Normal bowel sounds Neurological: Normal speech, Normal strength at 5/5 x4 extr - Studies Microbiology Data (last 24 hrs): 09/07/19 12:25 Throat Culture & Sensitivity - Final NORMAL UPPER RESPIRATORY NEAL GROWN. Medications List Reviewed: Yes Assessment And Plan - Plan CKD stage 3 vs CARLOS. UTI-on antibiotics. Hypertension Congestive heart failure exacerbation-resolving. Hypothyroidism Atrial fibrillation. Plan: Diuretic therapy continued with improvement. Still needing supplemental oxygen. Creatinine labs remained stable since admission. Value is 1.7. Will continue to avoid nephrotoxic medications and dose medications for her eGFR. We will monitor creatinine trend closely and obtain PTH, phosphorus level. Physician Review: Patient Assessed, Agree with Above Assessment and Plan Physician Review Additional Text: Acute pulmonary edema-slowly improving -continue diuretics with Bumex, will switched to p.o. -cardiology evaluation with appreciated -likely due to Diastalic CHF exacerbation New onset Atrial fibrillation-improving with started metoprolol -continue low-dose Eliquis Hypertension-controlled, on metoprolol now, continue to hold home verapamil DVT prophylaxis-on Eliquis UTI-on empirical Rocephin, follow urine culture. Weakness-continue PT and OT Disposition-possible home today if able to wean down O2 to 1 L
[2019-09-09] MEDS: BUMETANIDE 1 MG TABLET PO SCH (21:09)
[2019-09-09] MEDS: AMOX/K CLAV 500 MG TAB PO SCH (21:09)
--- NOTE | 2019-09-10 00:30 | PN ---
Date of Progress Note: 09/09/2019 Ms. Stoner has been followed for multiple medical problems including hypertension; end-stage renal dise ase, on hemodialysis; dyslipidemia. DICTATION ENDS HERE. WILLIAM/CARLOS MANUEL Voice ID: [id number] Report ID: [id number]
--- NOTE | 2019-09-10 00:39 | PN ---
Date of Progress Note: 09/09/2019 Ms. Stoner has been followed for hypertension, dyslipidemia, history of PE and DVT, asthma. She came i n with acute on chronic diastolic congestive heart failure. She also was noted to be in atrial fibri llation. She is on beta-blockers. She is on Eliquis 2.5 mg b.i.d. Echocardiogram showed normal eje ction fraction, mitral annular calcification, aortic sclerosis, decreased left ventricular compliance . I agree with her present regimen. I would like to see her in the office in the near future. Ms. Stoner is a patient of ours in the office, although her last visit was approximately 3 years ago. I will make sure she has an appointment in the next 2 to 4 weeks. WILLIAM/CARLOS MANUEL Voice ID: [id number] Report ID: [id number]
[2019-09-10] MEDS: IPRATROPIUM BROM 0.5MG/2.5ML NEB SCH ×4 (01:25→20:10)
[2019-09-10 04:17] LABS: Absolute Lymphocytes (CBC) 1.2 K/uL (0.7-4.9); Basophils % 0.8 % (0-1.3); Hematocrit 40.3 % (36.0-45.0); Lymphocytes % 25.6 % (15.3-44.8); MPV 8.5 fL (7.6-11.3); RBC Red Blood Cell Count 4.05 M/uL (3.86-4.86)
[2019-09-10 04:48] LABS: Phosphorus 3.2 mg/dL (2.5-4.9); Potassium 3.7 mmol/L (3.5-5.1)
[2019-09-10 05:10] LABS: Blood Morphology Comment NOT SEEN (NOT SEEN); Platelet Estimate ADEQ
[2019-09-10] MEDS: METOPROLOL TAR 25 MG TAB PO SCH ×2 (05:30→16:34)
[2019-09-10] MEDS: LEVOTHYROXINE SOD 0.1 MG TAB PO SCH (05:30)
[2019-09-10] MEDS: ASPIRIN EC 81 MG TAB PO SCH (09:08)
[2019-09-10] MEDS: APIXABAN 2.5 MG TABLET PO SCH ×2 (09:09→20:03)
[2019-09-10] MEDS: BUMETANIDE 1 MG TABLET PO SCH ×2 (09:09→20:03)
[2019-09-10] MEDS: CETIRIZINE HCL 5 MG TABLET PO SCH (09:09)
[2019-09-10] MEDS: PANTOPRAZOLE 40MG TABLET PO SCH ×2 (09:09→16:33)
[2019-09-10] MEDS: AMOX/K CLAV 500 MG TAB PO SCH ×2 (09:10→20:03)
--- NOTE | 2019-09-10 09:59 | P.PN ---
Subjective Date of Service: 09/10/19 Chief Complaint: Shortness of breath Subjective: No new changes Review of Systems 10-point ROS is otherwise unremarkable Physical Examination - Vital Signs Temperature: 97.2 F Blood Pressure: 118/60 Pulse: 122 Respirations: 18 Pulse Ox (%): 94 - Physical Exam General: Alert, Oriented x3, Cooperative HEENT: Atraumatic, Normocephalic, PERRLA Neck: Supple Respiratory: Clear to auscultation bilaterally Cardiovascular: No edema, Regular rate/rhythm, Normal S1 S2 Gastrointestinal: Normal bowel sounds Musculoskeletal: No clubbing, No erythema Neurological: Normal speech, Normal strength at 5/5 x4 extr, Cranial nerves 3-12 intact - Studies Microbiology Data (last 24 hrs): 09/07/19 12:25 Throat Culture & Sensitivity - Final NORMAL UPPER RESPIRATORY NEAL GROWN. Medications List Reviewed: Yes Assessment And Plan - Plan CKD stage 3 . UTI-on antibiotics. Hypertension Congestive heart failure exacerbation-resolving. Hypothyroidism Atrial fibrillation. Plan: Diuretic therapy continued with improvement. Still needing supplemental oxygen. Creatinine labs remained stable since admission. Value is 1.6 today. iPTH is elevated at 186. Phosphorus is noemal at 3.2. Will continue to avoid nephrotoxic medications and dose medications for her eGFR. We will follow up with her as outpatient. Physician Review Additional Text: Acute pulmonary edema-slowly improving -continue diuretics with Bumex, will switched to p.o. -cardiology evaluation with appreciated -likely due to Diastalic CHF exacerbation New onset Atrial fibrillation-improving with started metoprolol -continue low-dose Eliquis Hypertension-controlled, on metoprolol now, continue to hold home verapamil DVT prophylaxis-on Eliquis UTI-on empirical Rocephin, follow urine culture. Weakness-continue PT and OT Disposition-possible home today if able to wean down O2 to 1 L
--- NOTE | 2019-09-10 11:59 | P.DS ---
Admission Date: 09/07/19 Discharge Date: 09/10/19 Disposition: DC HOME/HOME HEALTH CARE Discharge Condition: FAIR Reason for Admission: Shortness of breath - Problems (1) A-fib Current Visit: Yes Status: Acute (2) Diastolic CHF, acute on chronic Current Visit: Yes Status: Acute (3) CKD (chronic kidney disease) stage 3, GFR 30-59 ml/min Onset Date: 04/15/17 Current Visit: No Status: Chronic (4) HTN (hypertension) Onset Date: 04/15/17 Current Visit: No Status: Chronic Qualifiers: Brief History of Present Illness: 89-year-old female past medical history of HTN, DVT, residing in the community with the family, presented because of increasing shortness of breath since the last 1 week initially on exertion but currently at rest, shortness of breath associated with mild cough, no sputum. Patient denies any fever or chills. She denies any recent travel. She denies any calf pain. She has a history of right lower extremity DVT 2 years ago that was treated with to Lovenox. She is on show foul current home medication tsh she takes only 2 medications. She denies any headache or dizziness. On arrival in the ED she had low O2 sats in the 80s. She has been ruled out for covid 19 testing. Chest x-ray shows bilateral pulmonary congestive changes. EKG on presentation shows AFib. She does not have a history of AFib in the past. She admits to persistent lower extremity swelling. She denies any dysuria or flank pain although noted creatinine of 1.67. She is being admitted for CHF as well as new onset AFib Hospital Course: Patient was admitted for acute diastolic CHF. New onset AFib. Heart rate was controlled with beta quita. Her home dose of verapamil was held. She was initiated on anticoagulation with Eliquis. Her aspirin was held patient was continued nor Plavix given the prior history of CAD. Echocardiogram shows normal EF with hyperdynamic left ventricle. She was started on diuretics with Lasix and she has been doing fine. Her O2 was gradually weaned down to 0 1-2 L now. She was evaluated by Cardiology also. Patient will be discharged home with a regimen today. Since she is still requiring O2, case management was able to set up home O2 for now. She will follow with her primary 1 week and O2 can be discontinued is T improving oxygenation. She was noted with UTI started on appropriate antibiotics although urine culture was of mixed karyn. Vital Signs/Physical Exam: Temp Pulse Resp BP Pulse Ox 97.2 F 122 H 18 118/60 94 09/10/19 09:59 09/10/19 09:59 09/10/19 09:59 09/10/19 09:59 09/10/19 09:59 General: Alert, Oriented x3 (On nasal cannula O2-1 L) HEENT: Atraumatic, Normocephalic Neck: Supple, 2+ carotid pulse no bruit, JVD not distended Respiratory: Normal air movement, Crackles/rales Cardiovascular: Normal pulses, Edema (Much improved), Irregular heart rate/rhythm Gastrointestinal: Normal bowel sounds, Soft and benign, Non-distended Musculoskeletal: No clubbing, No swelling Integumentary: No rashes, No breakdown Neurological: Normal speech, Normal strength at 5/5 x4 extr, Normal tone Laboratory Data at Discharge: WBC 4.9 K/uL (4.3-10.9) 09/10/19 03:36 Hgb 13.1 g/dL (12.0-15.0) 09/10/19 03:36 Hct 40.3 % (36.0-45.0) 09/10/19 03:36 Plt Count 173 K/uL (152-406) 09/10/19 03:36 PT 12.0 SECONDS (9.5-12.5) 09/07/19 12:23 INR 1.02 09/07/19 12:23 APTT 30.3 SECONDS (24.3-36.9) 09/07/19 12:23 Sodium 142 mmol/L (136-145) 09/10/19 03:36 Potassium 3.7 mmol/L (3.5-5.1) 09/10/19 03:36 BUN 23 mg/dL (7-18) H 09/10/19 03:36 Creatinine 1.49 mg/dL (0.55-1.3) H 09/10/19 03:36 Glucose 86 mg/dL (74-106) 09/10/19 03:36 Phosphorus 3.2 mg/dL (2.5-4.9) 09/10/19 03:36 Magnesium Cancelled 09/09/19 16:15 Total Bilirubin 0.4 mg/dL (0.2-1.0) 09/09/19 03:51 AST 7 U/L (15-37) L 09/09/19 03:51 ALT 12 U/L (12-78) 09/09/19 03:51 Alkaline Phosphatase 47 U/L (45-117) 09/09/19 03:51 Troponin I 0.05 ng/mL (0.0-0.045) H 09/07/19 20:43 Lipase 116 U/L (73-393) 09/07/19 12:23 Home Medications: Ascorbic Acid [Vitamin C*] 500 mg PO DAILY 04/19/15 Fluticasone [Flonase 50MCG Nasal [place]*] 2 sprays NS DAILY PRN 04/19/15 Levothyroxine [Synthroid*] 100 mcg PO DAILY 04/19/15 Montelukast [Singulair*] 10 mg PO DAILY 04/19/15 Acetaminophen 325 mg PO Q4H PRN 04/13/17 Cholecalciferol (Vitamin D3) [Vitamin D 5,000 IU Cap*] 5,000 unit PO DAILY 04/13/17 Gluc Salas/Chondro Salas A/Vit C/Mn [Glucosamine-Chondroitin Cap] 750 mg PO BID 04/13/17 Ubidecarenone [Co Q-10] 100 mg PO DAILY 04/13/17 Clopidogrel Bisulfate [Plavix*] 75 mg PO DAILY 09/07/19 Levocetirizine Dihydrochloride [Allergy Relief] 5 mg PO DAILY 09/07/19 Amox/Clavulanate [Augmentin 500-125 mg Tab*] 500 mg PO BID #6 tab 09/09/19 Apixaban [Eliquis *] 2.5 mg PO BID #60 tablet 09/09/19 Bumetanide [Bumex] 1 mg PO BID #60 tablet 09/09/19 Magnesium Chloride [Mag Delay] 64 mg PO BID #60 tablet. 09/09/19 Metoprolol Tartrate [Lopressor*] 50 mg PO BID 6AM 6PM #120 tab 09/09/19 Pantoprazole [Protonix Tab*] 40 mg PO BIDAC tab 09/09/19 Saliva Stimulant Agents Comb.3 [Biotene Moisturizing Mouth] 44.3 ml MM QID 30 Days #1 bottle 09/09/19 New Medications: Amox/Clavulanate [Augmentin 500-125 mg Tab*] 500 mg PO BID #6 tab Saliva Stimulant Agents Comb.3 [Biotene Moisturizing Mouth] 44.3 ml MM QID 30 Days #1 bottle Bumetanide [Bumex] 1 mg PO BID #60 tablet Apixaban [Eliquis *] 2.5 mg PO BID #60 tablet Metoprolol Tartrate [Lopressor*] 50 mg PO BID 6AM 6PM #120 tab Magnesium Chloride [Mag Delay] 64 mg PO BID #60 tablet. Diet: Low sodium Activity: Ad susana Followup: Tyler Johnson MD [ACTIVE - CAN ADMIT] - Kd Fuentes [COURTESY - CAN ADMIT] - Time spent managing pt's care (in minutes): 35
[2019-09-10] MEDS ORDERED: Magnesium Sulfate 2gm IVPB 2 G/50 ML BAG IV ONE (13:14)
[2019-09-11] MEDS: IPRATROPIUM BROM 0.5MG/2.5ML NEB SCH ×3 (02:00→14:00)
[2019-09-11] MEDS: METOPROLOL TAR 25 MG TAB PO SCH ×2 (05:02→17:09)
[2019-09-11] MEDS: LEVOTHYROXINE SOD 0.1 MG TAB PO SCH (05:04)
[2019-09-11 06:47] LABS: Absolute Lymphocytes (CBC) 1.1 K/uL (0.7-4.9); Basophils % 0.9 % (0-1.3); Hematocrit 40.7 % (36.0-45.0); Lymphocytes % 23.6 % (15.3-44.8); MPV 8.8 fL (7.6-11.3); RBC Red Blood Cell Count 4.15 M/uL (3.86-4.86)
[2019-09-11] MEDS: ASPIRIN EC 81 MG TAB PO SCH (08:57)
[2019-09-11] MEDS: BUMETANIDE 1 MG TABLET PO SCH (08:57)
[2019-09-11] MEDS: APIXABAN 2.5 MG TABLET PO SCH (08:57)
[2019-09-11] MEDS: PANTOPRAZOLE 40MG TABLET PO SCH ×2 (08:58→17:10)
[2019-09-11] MEDS: AMOX/K CLAV 500 MG TAB PO SCH (08:58)
[2019-09-11] MEDS: CETIRIZINE HCL 5 MG TABLET PO SCH (08:59)
--- NOTE | 2019-09-11 14:42 | PN ---
Date of Progress Note: 09/11/2019 Subjective: Patient seen and examined. Chart reviewed and case discussed with RN. Code Status: Full. Medications: List reviewed. Physical Examination: Vital Signs: Temp 97.6, heart rate 126, blood pressure 121/76, respirations 18, O2 91% on 1 L via na joceline cannula. General: Awake, alert, oriented x3. Elderly female, obese, not in any acute distress. CV: S1, S2, irregularly irregular. Respiratory: Moving air well bilaterally. No wheezing or stridor. Gastrointestinal: Abdomen is sof t, nontender, nondistended. Positive bowel sounds. Extremities: No clubbing, cyanosis, or edema. Neurologic: Nonfocal. Laboratory Data: Sodium 142, potassium 2.7, chloride 96, CO2 41, BUN 23, creatinine 1.49, glucose 86 , calcium 7.9, phosphorus 2.2, these labs were from 09/09. Labs from 09/11/2019, WBC 4.8, H and H 13 .1 and 40.7, platelets 183, neutrophils 54%. Urine culture growing out Enterococcus faecalis sensiti ve to penicillin. Blood cultures, no growth to date. Assessment And Plan: 1.Acute pulmonary edema, improving. 2.New onset atrial fibrillation, on metoprolol and Eliquis. 3.Essential hypertension, improved. 4.Urinary tract infection secondary to Enterococcus, on Augmentin. 5.Generalized weakness, improved. 6.Hypothyroidism, levothyroxine. 7.Plan to discharge once home O2 has been set up for her congestive heart failure. SA/MODL Voice ID: [id number] Report ID: [id number]
[2019-09-11 16:11] VITALS: O2SAT 94; BMI 31.9
[2019-09-11 17:11] VITALS: BP 119/66
[2019-09-11 17:52] VITALS: TEMP 97.7
--- NOTE | 2019-09-11 17:59 | P.PN ---
Subjective Date of Service: 09/11/19 Chief Complaint: Shortness of breath Subjective: No new changes Review of Systems 10-point ROS is otherwise unremarkable Physical Examination - Vital Signs Temperature: 97.7 F Blood Pressure: 119/66 Pulse: 123 Respirations: 17 Pulse Ox (%): 94 - Physical Exam General: Alert, Oriented x3 HEENT: Atraumatic, Normocephalic Respiratory: Clear to auscultation bilaterally Cardiovascular: Regular rate/rhythm, Normal S1 S2 Gastrointestinal: Normal bowel sounds Neurological: Normal speech, Normal strength at 5/5 x4 extr - Studies Medications List Reviewed: Yes Assessment And Plan - Plan CKD stage 3 . UTI-on antibiotics. Hypertension Congestive heart failure exacerbation-resolving. Hypothyroidism Atrial fibrillation. UTI Plan: Diuretic therapy continued with improvement. Still needing supplemental oxygen. Creatinine labs remained stable since admission. iPTH is elevated at 186. Phosphorus is normal at 3.2. Will continue to avoid nephrotoxic medications and dose medications for her eGFR. Antibiotics to be continued for her UTI. Physician Review Additional Text: Acute pulmonary edema-slowly improving -continue diuretics with Bumex, will switched to p.o. -cardiology evaluation with appreciated -likely due to Diastalic CHF exacerbation New onset Atrial fibrillation-improving with started metoprolol -continue low-dose Eliquis Hypertension-controlled, on metoprolol now, continue to hold home verapamil DVT prophylaxis-on Eliquis UTI-on empirical Rocephin, follow urine culture. Weakness-continue PT and OT Disposition-possible home today if able to wean down O2 to 1 L
== END 2019-09-11 19:20 | disposition home health service (06) | DRG 291 ==
LOC: ER 11:26 → ERHOLD 16:04 → 4TH 17:50 → 2ND 22:38
PROVIDERS: ADMIT Internal Medicine; ATTEND Family Medicine
DX: I13.0 Hypertensive heart and chronic kidney disease with heart failure and stage 1 through stage 4 chronic kidney disease, or unspecified chronic kidney disease (principal); I50.33 Acute on chronic diastolic (congestive) heart failure; N39.0 Urinary tract infection, site not specified; I48.91 Unspecified atrial fibrillation; N18.3 Chronic kidney disease, stage 3 (moderate); Z86.718 Personal history of other venous thrombosis and embolism; Z20.828 Contact with and (suspected) exposure to other viral communicable diseases; I25.10 Atherosclerotic heart disease of native coronary artery without angina pectoris; Z79.890 Hormone replacement therapy; Z79.02 Long term (current) use of antithrombotics/antiplatelets; Z79.01 Long term (current) use of anticoagulants; Z79.899 Other long term (current) drug therapy; Z88.8 Allergy status to other drugs, medicaments and biological substances; Z79.82 Long term (current) use of aspirin; E78.5 Hyperlipidemia, unspecified; E03.9 Hypothyroidism, unspecified; Z90.710 Acquired absence of both cervix and uterus; Z86.711 Personal history of pulmonary embolism; Z96.642 Presence of left artificial hip joint; B95.2 Enterococcus as the cause of diseases classified elsewhere
CPT/HCPCS: 36415; 71045; 80048; 80053; 80076; 81015; 82728; 83605; 83690; 83735; 83880; 83970; 84100; 84145; 84443; 84484; 85025; 85610; 85730; 86140; 87040; 87070; 87077; 87081; 87086; 87088; 87186; 87804; 93005; 93306; 96374; 97116; 97161; 97530; 99285; J0696; J1940; U0002

== ENCOUNTER 2019-09-24 11:13 | Inpatient (IN) | payer OTHER ==
--- OUTSIDE RECORDS SUMMARY | 2019-09-24 11:55 | XMS REPORT | Clinical Summary ---
:1930 Author Organization [facility] Address [address] [place] [address] Care Team Providers Name Role Phone Todd Langston MD Primary Care Provider Allergies Active Allergy Reactions Severity Noted Date Comments Tolmetin Shortness Of Breath High 05/17/2015 Medications Medication Sig Dispensed Refills Start Date End Date Status levothyroxine 0 01/26/2018 Activ e (SYNTHROID, LEVOXYL) 100 mcg tablet verapamil sustained 0 01/30/2018 Active release (CALAN-SR) 240 MG SR tablet montelukast Take 10 mg by mouth 1 03/13/2018 Active (SINGULAIR) 10 mg every morning. tablet metoprolol succinate 0 03/11/2018 Active XL (TOPROL-XL) 50 mg 24 hr tablet predniSONE Take 10 mg by mouth 0 04/01/2018 Active (DELTASONE) 10 mg 2 (two) times a tablet day. simvastatin (ZOCOR) simvastatin 20 mg 0 08/15/2017 Active 20 MG tablet tablet FLUZONE HIGH-DOSE TO BE ADMINISTERED 0 02/28/2018 Active 2018-19, PF, 180 BY PHARMACIST FOR mcg/0.5 mL syringe IM IMMUNIZATION injection doxazosin (CARDURA) 2 0 03/17/2018 Active MG tablet apixaban (ELIQUIS) 5 TAKE 1 TABLET BY 0 07/14/2017 Active mg tablet MOUTH TWICE A DAY acetaminophen Take 650 mg by 0 A ctive (TYLENOL) 325 MG mouth. tablet Active Problems No known active problems Family History Relation Name Status Comments Father Mother Social History Tobacco Use Types Packs/Day Years Used Date Never Smoker Smokeless Tobacco: Never Used Alcohol Use Drinks/Week oz/Week Comments No Alcohol Habits Answer Date Recorded How often do you have a drink containing alcohol? Never 04/07/2018 How many drinks containing alcohol do you have on a typical Not asked day when you are drinking? How often do you have six or more drinks on one occasion? No t asked Sex Assigned at Date Recorded Not on file Job Start Date Occupation Industry Not on file Not on file Not on file Travel History Travel Start Travel End No recent travel history available. 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
--- OUTSIDE RECORDS SUMMARY | 2019-09-24 11:55 | XMS REPORT ---
:1930 Author Organization [facility] t Address [address] [place] [address] [address]. [address] [place] [address] Care Team Providers Name Role Phone Todd Langston MD Primary Care Physician Nils Jarquin MD Attending Clinician NILS JARQUIN Attending Clinician Unavailable NILS JARQUIN Admitting Clinician Unavailable Problems This patient has no known problems. Allergies, Adverse Reactions, Alerts Allergy Allergy Status Severity Reaction(s) Onset Inactive Treating Comm ents Source Name Type Date Date Clinician Tolmetin Propensi Active Shortness Of [place] ty to Breath 1-05 [facility] adverse 00:00: st reaction 00 s to drug Social History Social Habit Start Date Stop Date Quantity Comments Source History [facility] Alcohol Std Drinks History [facility] Alcohol Binge Sex Assigned At [facility] ethodist Alcohol intake 2018-04-07 2018-04-07 Current [facility] thodist 00:00:00 00:00:00 non-drinker of alcohol (finding) History [facility] 2018-04-07 2018-04-07 1 [place] [facility] Alcohol Frequency 00:00:00 00:00:00 Smoking Status Start Date Stop Date Source Never smoker [place] Method[facility] t Medications Ordered Filled Start Stop Current Ordering Indication Dosage Frequency Signature Comments Components Source Medication Medication Date Date Medication? Clinician (SIG) Name Name acetaminoph 2017-05 Yes 650mg Take 650 [place] en 1-26 mg by [facility] (TYLENOL) 16:47: mouth. st 325 MG 59 tablet predniSONE 2017-05 Yes 10mg Q.5D Take 10 mg [place] (DELTASONE) 1-20 by mouth 2 Me thodi 10 mg 00:00: (two) st tablet 00 times a day. doxazosin 2017-05 Yes [place] (CARDURA) 2 1-05 [facility] MG tablet 00:00: st 00 montelukast 2017-05 Yes 10mg QD Take 10 mg [place] (SINGULAIR) 1-01 by mouth Meth aime 10 mg 00:00: every st tablet 00 morning. metoprolol 2017-05 Yes [place] succinate 0-30 [facility] XL 00:00: st (TOPROL-XL) 00 50 mg 24 hr tablet FLUZONE 2017-05 Yes TO BE [place] HIGH-DOSE 0-19 ADMINISTER Meth aime , 00:00: ED BY st PF, 180 00 PHARMACIST mcg/0.5 mL FOR syringe IM IMMUNIZATI injection ON verapamil Yes [place] sustained 9-20 [facility] release 00:00: st (CALAN-SR) 00 240 MG SR tablet levothyroxi Yes [place] 9-16 [facility] (SYNTHROID, 00:00: st LEVOXYL) 00 100 mcg tablet simvastatin Yes simvastati [place] (ZOCOR) 20 4-05 n 20 mg Method i MG tablet 00:00: tablet st 00 apixaban Yes TAKE 1 [place] (ELIQUIS) 5 3-04 TABLET BY Met hodi mg tablet 00:00: MOUTH st 00 TWICE A DAY Procedures This patient has no known procedures. Plan of Care Planned Activity Planned Date Details Comments Source Future Scheduled Test [code = ] Future Scheduled Test [code = ] Future Scheduled Test [code = ] Encounters Start End Encounter Admission Attending Care Care Encounter Source Date/Time Date/Time Type Type Clinicians Facility Department ID 2019-01-26 2019-01-26 LILLY Bryson [id number] 14:06:11 14:21:11 Visit [place] AMBULATOR [id number] Nils Y [id number] 2019-01-05 2019-01-05 Kaur Jarquin BCM [id number] 13:26:59 13:56:59 Visit [place] DAVID [id number] Nils Quintanilla [id number] Results Test Description Test Time Test Comments Results Result Comments Source SARS-COV2/RT-PCR ([facility]) 2019-09-07 20:26:00 Test Item Value Reference Range Interpretation Comme nts SARS-COV2/RT-PCR (test code = 4243479) Not Detected Not Detected, N egative SARS-COV-2 PERFORMING LAB (test code = [facility] 5841286) Negative results do not preclude SARS-CoV-2 infection and should not be used as the sole basis for patient management decisions. Negative results must be combined with clinical observations, patient history, and epidemiological information. A false negative result may occur if a specimen is improperly collected, transported or handled.The limit of detection for this assay is 250 copies/mL.This SARS CoV-2 test is a rapid, real-time RT-PCR test intended for the qualitative detection of nucleic acid from SARS-CoV-2 in a nasopharyngeal swab specimen collected from individuals suspected of COVID-19 by their healthcare provider.This test has not been Food and Drug Administration (FDA) cleared or approved and has been authorized by FDA under an Emergency Use Authorization (EUA). This EUA will be effective until the declaration that circumstances exist justifying the authorization of the emergency use of in vitro diagnostic tests for detection and/or diagnosis of COVID-19 is terminated under Section 564(b)(2) of the Act or the EUA is revoked under Section 564(g) of the Act.Fact Sheet for Healthcare Pro viders:https://www.Livemocha.com/Documents/Xpert%20Xpress%20SARS%20CoV-2/Fact%20Sh eets/719-5362%49IABE-KRF-1%20HEALTHCARE%20PROVIDERS%20FACT%20SHEET.pdfFact Sheet for Healthcare Patients:https://www.[employer] id.com/Documents/Xpert%20Xpress%20SARS%20CoV-2/Fact%20Sheets/3023801%20SARS-COV -2%20PATIENT%20FACT%20SHEET.pdfPerforming Laboratory:[facility].[place], [place] [id number] 11:44:00 Test Item Value Reference Range Interpretation Comments ACTIVATED CLOTTING TIME 175 sec Refe rence Range: (BEAKER) (test code = 74-137 seconds, 441) Baseline/TESTED AT [facility] [address] [facility] 7703 0
--- OUTSIDE RECORDS SUMMARY | 2019-09-24 11:55 | XMS REPORT | Clinical Summary ---
:1930 Author Organization [facility] Address [address] [place] [address] Care Team Providers Name Role Phone Todd Langston MD Primary Care Provider Antony Farah Unavailable Allergies Active Allergy Reactions Severity Noted Date Comments Tolmetin Shortness Of Breath High 05/17/2015 Medications Medication Sig Dispensed Refills Start End Status Date Date coenzyme Q10 100 mg Take 100 mg by 0 Active capsule mouth daily. aspirin 81 MG EC Take 81 mg by mouth 0 Active tablet daily. levothyroxine Take 100 mcg by 0 Active (SYNTHROID, mouth daily. LEVOTHROID) 100 MCG tablet verapamil Take 240 mg by 0 Activ e (CALAN-SR) 240 MG mouth daily. CR tablet ascorbic acid Take 500 mg by 0 A ctive (ASCORBIC ACID WITH mouth daily. HAROLDO HIPS) 500 MG tablet metoprolol Take 25 mg by mouth 0 Active (TOPROL-XL) 50 MG daily with dinner. 24 hr tablet acetaminophen Take 650 mg by 0 A ctive (TYLENOL) 325 MG mouth as needed for tablet Pain. fluticasone 2 sprays by Nasal 0 Active (FLONASE) 50 route as needed for mcg/actuation nasal Rhinitis. spray montelukast Take 10 mg by mouth 0 Active (SINGULAIR) 10 mg as needed. tablet cyanocobalamin Inject 1,000 mcg 0 Active (VITAMIN B-12) intramuscularly 1,000 mcg/mL every 30 (thirty) injection days. cholecalciferol, Take 5,000 Units by 0 Active vitamin D3, 5,000 mouth daily. unit Tab clopidogrel Take 75 mg by mouth 0 Active (PLAVIX) 75 mg daily. tablet rivaroxaban Take 1 tablet (10 30 tablet 0 Active (XARELTO) 10 mg Tab mg total) by mouth 9 tablet daily with dinner. niacin 500 MG Take 500 mg by 0 D iscontinued tablet mouth daily with 019 dinner. simvastatin (ZOCOR) Take 20 mg by mouth 0 Discontinued 20 MG tablet nightly. 019 irbesartan (AVAPRO) Take 300 mg by 0 01/16 Discontinued 300 MG tablet mouth nightly. 019 phenylephrine Take 10 mg by mouth 0 Discontinued (SUDAFED PE) 10 MG every 4 (four) 019 Tab hours as needed. traMADol (ULTRAM) Take 50 mg by mouth 0 Discontinued 50 mg tablet every 6 (six) hours 019 as needed for Pain. diphenhydrAMINE Take 25 mg by mouth 0 10/12 Discontinued (BENADRYL) 25 mg as needed for 019 tablet Sleep. Missing or Vit B 12 liquid 1 0 D iscontinued Non-Formulary drop daily . 019 Medication acetaminophen-codei Take 1 tablet by 15 tablet 0 28/06 ne (TYLENOL #4) mouth every 4 9 019 300-60 mg per (four) hours as tablet needed for Pain for up to 10 days. Max Daily Amount: 6 tablets Active Problems Problem Noted Date DVT, lower extremity 01/16/2019 Left carotid artery occlusion 06/01/2015 HTN (hypertension) 06/01/2015 Dyslipidemia 06/01/2015 PVD (peripheral vascular disease) 06/01/2015 Right-sided carotid artery disease 05/20/2015 Encounters Date Type Specialty Care Team Description 09/07/2019 Lab Requisition Lab 01/16/2019 Surgery [place] Mann PERIPHERAL A GRAHAM / MD Amari AORTOGRAM 01/16/2019 Hospital Encounter [place] Mann MD 01/16/2019 Orders Only General Internal Medicine after 09/23/2018 Family History Medical History Relation Name Comments Hypertension Mother Atrial fibrillation Sister Relation Name Status Comments Mother Sister Social History Tobacco Use Types Packs/Day Years Used Date Former Smoker Quit: 05/17/18 90 Smokeless Tobacco: Never Used Comments: quitted 1989 Alcohol Use Drinks/Week oz/Week Comments No Sex Assigned at Date Recorded Not on file Job Start Date Occupation Industry Not on file Not on file Not on file Travel History Travel Start Travel End No recent travel history available. Last Filed Vital Signs Vital Sign Reading Time Taken Blood Pressure 158/55 01/16/2019 2:45 PM CDT Pulse 76 01/16/2019 2:00 PM CDT Temperature 36.7 C (98 F) 01/16/2019 7:38 AM CDT Respiratory Rate 16 01/16/2019 2:45 PM CDT Oxygen Saturation 95% 01/16/2019 1:10 PM CDT Inhaled Oxygen Concentration - - Weight 92.6 kg (204 lb 3.2 oz) 01/16/2019 7:38 AM CDT Height 170.2 cm (5' 7") 01/16/2019 7:38 AM CDT Body Mass Index 31.98 01/16/2019 7:38 AM CDT Plan of Treatment Health Maintenance Due Date Last Done Comments PNEUMOCOCCAL 65+ LOW/MEDIUM RISK (1 of 2 - PCV13) 1996 MEDICARE ANNUAL WELLNESS (YEAR 2 or FIRST YEAR if no 05/14/2016 IPPE) INFLUENZA VACCINE (Season Ended) 2020 Implants Implanted Type Area Biochemistry Technician Device Shelf Model / Identifier Expiration Serial / Date Lot Cinthya Fitzpatrick Dbl Mo 0.3x3.0in [id number] - [id number] IMPLANT S Right: GETINGE 10/09/2018 [id number] / Implanted: Qty: 1 on 05/20/2015 by Yobany Hills MD Neck IND:MAQUET:CV / [id number] Procedures Procedure Name Priority Date/Time Associated Diagnosis Comme nts SARS-COV2/RT-PCR Routine 09/07/2019 12:25 PM Resu lts for this ([facility] REF [facility]) CDT procedure are in the results section. CARDIAC CATH REPORT 01/20/2019 10:10 AM - SCAN CDT POCT-ACT Routine 01/16/2019 11:35 AM Results for this CDT procedure are i n the results section. ECG 12-LEAD Routine 01/16/2019 9:07 AM CDT Procedure Note - Interface, External Ris In - 01/16/2019 9:13 AM CDT Ventricular Rate 66 BPM Atrial Rate 66 BPM P-R Interval 166 ms QRS Duration 66 ms Q-T Interval 444 ms QTC Calculation(Bazett) [address] 23 degrees Sinus rhythm with Premature supraventricular complexes Otherwise normal ECG When compared with ECG of 09:39, Premature supraventricular c omplexes are now Present Criteria for Inferior infarc t are no longer Present ECG 12-LEAD Routine 01/16/2019 9:07 AM Results for this CDT procedure are i n the results section. PERIPHERAL ANGIOS / 01/16/2019 9:00 AM Iliac artery AORTOGRAM CDT stenosis, right (HCC) Case Notes (2)case POP6 after 09/23/2018 Results SARS-CoV2/RT-PCR ([facility] Ref [facility]) (09/07/2019 12:25 PM CDT) SARS-COV2/RT-PCR Not Detected Not Detected, Negative [facility] SARS-COV-2 PERFORMING LAB [facility] Specimen Other Narrative Performed At Negative results do not preclude SARS-CoV-2 [facility] infection and should not be used as the sole basis for patient management decisions. Negative results must be combined with clinical observations, patient history, and epidemiological information. A false negative result may occur if a specimen is improperly collected, transported or handled. The limit of detection for this assay is 250 copies/mL. This SARS CoV-2 test is a rapid, real-time RT-PCR test intended for the qualitative detection of nucleic acid from SARS-CoV-2 in a nasopharyngeal swab specimen collected from individuals suspected of COVID-19 by their healthcare provider. This test has not been Food and Drug [...] is revoked under Section 564(g) of the Act. Fact Sheet for Healthcare Providers: https://www.[employer]ango[employer]/Documents/Xpert%20Xpre ss%20SARS%20CoV-2/Fact%20Sheets/302-3802%20SAR S-COV-2%20HEALTHCARE%20PROVIDERS%20FACT%20SHEE T.pdf Fact Sheet for Healthcare Patients: https://www.[employer]/Documents/Xpert%20Xpre ss%20SARS%20CoV-2/Fact%20Sheets/302-3801%20SAR S-COV-2%20PATIENT%20FACT%20SHEET.pdf Performing Laboratory: [address] [place] [address] Performing Organization Address [facility] Phone Number [address] [address] [place] CARDIAC CATH REPORT - SCAN (01/20/2019 10:10 AM CDT) Narrative Performed At This result has an attachment that is no t available. POC ACTIVATED CLOTTING TIME (01/16/2019 11:35 AM CDT) Activated Clotting Time 175Comment: Reference sec [facility] Range: 74-137 seconds, [facility] Baseline/TESTED AT [address] [address] Specimen Blood Performing Organization Address [facility] Phone Number [address] [address] [place] ECG 12 lead (01/16/2019 9:07 AM CDT) Specimen Narrative Performed At Ventricular Rate 66 BPM GE MUSE Atrial Rate 66 BPM P-R Interval 166 ms QRS Duration 66 ms Q-T Interval 444 ms QTC Calculation(Bazett) [address] 23 degrees Sinus rhythm with Premature supraventric ular complexes Prolonged QT When compared with ECG of 17-MAY-2015 09 :39, Premature supraventricular complexes are now Present Confirmed by Ash GARZA, DARREN ([id number]) on 01/17/2019 10: 17:35 AM Procedure Note Interface, External Ris In - 01/17/2019 10:17 AM CDT Ventricular Rate 66 BPM Atrial Rate 66 BPM P-R Interval 166 ms QRS Duration 66 ms Q-T Interval 444 ms QTC Calculation(Bazett) [address] 23 degrees Sinus rhythm with Premature supraventric ular complexes Prolonged QT When compared with ECG of 17-MAY-2015 09 :39, Premature supraventricular complexes are now Present Confirmed by Ash GARZA, DARREN ([id number]) o n 01/17/2019 10:17:35 AM Performing Organization Address City/State/Zipcode Phone Number GE MUSE after 09/23/2018 Insurance Payer Benefit Plan / Subscriber ID Type Phone Address Group [employer] - MEDICARE AETNA MEDICARE HMO xxxxxxxx [address] [place] [id number] Advance Directives Patient has advance care planning documents, and code status on file. For more information, please contact:[address] [phone] Code Status Date Activated Date Inactivated Comments Full Code 01/16/2019 7:42 AM 01/16/2019 9:42 PM This code status was determined by: Patient Full Code 05/20/2015 5:39 AM 05/21/2015 1:53 PM This code status was determined by: Patient
--- NOTE | 2019-09-24 12:37 | RAD REPORT ---
EXAM DESCRIPTION: Rachid Single View09/24/2019 12:28 pm CLINICAL HISTORY: Chest pain COMPARISON: August 2019 FINDINGS: The lungs appear clear of acute infiltrate. The heart is mildly to moderately enlarged IMPRESSION: No acute abnormalities displayed
[2019-09-24 13:16] LABS: Protime INR 1.15
[2019-09-24 13:17] LABS: Absolute Lymphocytes (CBC) 1.2 K/uL (0.7-4.9); Basophils % 0.4 % (0-1.3); Hematocrit 46.6 % (36.0-45.0); MPV 8.9 fL (7.6-11.3); RBC Red Blood Cell Count 4.85 M/uL (3.86-4.86)
[2019-09-24] MEDS ORDERED: NA CHLORIDE 0.9% 1,000 ML ONE ×2 (13:24→14:44)
[2019-09-24 13:25] LABS: Albumin 3.7 g/dL (3.4-5.0); Bilirubin Direct 0.2 mg/dL (0-0.2); Bilirubin Total 0.8 mg/dL (0.2-1.0); Potassium 3.3 mmol/L (3.5-5.1); Protein, Total 7.5 g/dL (6.4-8.2); Troponin (Emerg Dept Use Only) 0.04 ng/mL (0.0-0.045)
--- NOTE | 2019-09-24 13:37 | RAD REPORT ---
EXAM DESCRIPTION: CT - Head C Spine Mpr Wo Con - 09/24/2019 12:55 pm CLINICAL HISTORY: Head and neck injury status post fall. Head and neck pain COMPARISON: None. TECHNIQUE: Computed axial tomography of the head and cervical spine was obtained. Sagittal and coronal reconstruction was performed. All CT scans are performed using dose optimization technique as appropriate and may include automated exposure control or mA/KV adjustment according to patient size. FINDINGS: An intracranial bleed is not seen. The ventricles are normal in caliber. An extra-axial fl uid collection is not noted. Small amount of fluid within the sphenoid sinus. A cervical fracture is not visualized. No dislocation is noted. Spondylosis involves the mid and dist al cervical spine resulting in mild central spinal stenosis. Moderate foraminal stenosis is also note d. A hemangioma is suspected within the T2 vertebral body IMPRESSION: No acute intracranial abnormality is seen. A cervical fracture is not visualized. If the patient continues to have symptoms to suggest intracra nial /spinal cord pathology then MRI would be recommended
--- NOTE | 2019-09-24 14:06 | ER ---
Nurse's Notes [facility] Name: Martine Stoner Age: 89 yrs Sex: Female : 1930 Arrival Date: 09/24/2019 Time: :19 Bed 17 Private MD: Diagnosis: Dyspnea;Hypoxemia;Atrial fibrillation and flutter-with RVR;Unspecified kidney failure-CHRONIC;Respiratory failure, unspecified with hypercapnia;Hypokalemia Presentation: 09/23 11:24 Chief complaint: Patient states: got up to bathroom at 4 am, fell, pt states she did iw not trip she just fell, [facility] was called to scene but pt refused transport, pt got up to bathroom again and felt light headed, nauseated, almost passed out, son was able to catch her before she fell, pt feels better now, HR 136, afib, pt does not know if she has a hx of Afib but is on a blood thinner, states she was recently in hospital for similar symptoms. 11:35 Acuity: LEANDRA 3 iw 11:35 Coronavirus screen: Proceed with normal triage. Patient denies a cough. Patient denies iw shortness of breath or difficulty breathing. Patient denies measured and/or subjective temperature greater than 100.4F prior to today's visit. Patient denies travel on a cruise ship or to a country the [facility] currently lists as an affected area. Patient denies contact with known and/or suspected case of COVID-19. Ebola Screen: Patient negative for fever greater than or equal to 101.5 degrees Fahrenheit, and additional compatible Ebola Virus Disease symptoms Patient denies exposure to infectious person. Patient denies travel to an Ebola-affected area in the 21 days before illness onset. No symptoms or risks identified at this time. Initial Sepsis Screen: Does the patient meet any 2 criteria? HR > 90 bpm. No. Patient's initial sepsis screen is negative. Does the patient have a suspected source of infection? No. Patient's initial sepsis screen is negative. Risk Assessment: Do you want to hurt yourself or someone else? Patient reports no desire to harm self or others. Onset of symptoms was September 24, 2019. 11:35 Method Of Arrival: EMS: [facility] iw Historical: - Allergies: 11:40 tolmetin; iw - Home Meds: 14:05 bumetanide 1 mg Oral tab 1 tab once daily [Active]; methocarbamol 500 mg Oral tab twice iw a day [Active]; gabapentin 300 mg oral cap twice a day [Active]; fluticasone 50 mcg/actuation nasal spsn 1 spray once daily [Active]; Vitamin D Oral 50,000 unit daily [Active]; glucosamine-chondroitin 250-200 mg oral tab twice a day [Active]; Vitamin C 500 mg Oral cpER daily [Active]; Co Q-10 200 mg oral cap twice a day [Active]; Eliquis 2.5 mg oral tab 1 tab 2 times per day [Active]; metoprolol tartrate 50 mg Oral tab 1 tab 2 times per day [Active]; Magnesium Oxide Oral daily [Active]; pantoprazole 40 mg oral TbEC 1 tab once daily [Active]; levothyroxine 100 mcg tab 1 tab once daily [Active]; montelukast 10 mg oral tab 1 tab once daily [Active]; levocetirizine 5 mg oral tab 1 tab once daily [Active]; - PMHx: 11:40 DVT; Hypertension; Hypothyroidism; PE; High Cholesterol; Atrial Fib; iw - PSHx: 11:40 Carotid surgery; iw - Immunization history:: Adult Immunizations up to date. - Social history:: Smoking status: Patient/guardian denies using tobacco, but has a distant history of tobacco abuse. Screenin:28 Abuse screen: Denies threats or abuse. Denies injuries from another. Nutritional iw screening: No deficits noted. Tuberculosis screening: No symptoms or risk factors identified. Fall Risk None identified. Assessment: 11:40 General: Appears in no apparent distress. comfortable, Behavior is calm, cooperative. iw Pain: Denies pain. Pain does not radiate. Pain began no complaints of pain. Neuro: Level of Consciousness is awake, alert, obeys commands, Oriented to person, place, time, situation, Moves all extremities. Full function. Cardiovascular: Capillary refill < 3 seconds in bilateral fingers Patient's skin is warm and dry. Cardiovascular: Rhythm is atrial fibrillation with rapid ventricular response. Respiratory: Respiratory effort is even, unlabored, Respiratory pattern is regular, symmetrical. Respiratory: Denies cough, shortness of breath. GI: Abdomen is non-distended, Reports nausea. : Denies burning with urination. Derm: Skin is intact, is healthy with good turgor. Musculoskeletal: Range of motion: intact in all extremities. 13:28 Reassessment: Patient appears in no apparent distress at this time. Patient and/or iw family updated on plan of care and expected duration. Pain level reassessed. Patient is alert, oriented x 3, equal unlabored respirations, skin warm/dry/pink. pt c/o headache, does not want pain medicine at this time, pt requesting water. 14:01 Reassessment: Patient appears in no apparent distress at this time. Patient and/or iw family updated on plan of care and expected duration. Pain level reassessed. Patient is alert, oriented x 3, equal unlabored respirations, skin warm/dry/pink. pt given water, call light within reach, NAD, pt remains tachycardic at 125 bpm. 15:00 Reassessment: Patient appears in no apparent distress at this time. Patient and/or vc family updated on plan of care and expected duration. Pain level reassessed. 16:00 Reassessment: Patient appears in no apparent distress at this time. Patient and/or vc family updated on plan of care and expected duration. Pain level reassessed. Patient is alert, oriented x 3, equal unlabored respirations, skin warm/dry/pink. Heart rate is 107, patient remains in a-fib. 17:00 Reassessment: Patient appears in no apparent distress at this time. Patient and/or vc family updated on plan of care and expected duration. Pain level reassessed. Patient is alert, oriented x 3, equal unlabored respirations, skin warm/dry/pink. Patients heart rate ranges from 89-110. Patient remains in afib. 18:00 Reassessment: Patient appears in no apparent distress at this time. Patient and/or vc family updated on plan of care and expected duration. Pain level reassessed. Patient is alert, oriented x 3, equal unlabored respirations, skin warm/dry/pink. 19:00 Reassessment: Patient appears in no apparent distress at this time. Patient and/or vc family updated on plan of care and expected duration. Pain level reassessed. Patient is alert, oriented x 3, equal unlabored respirations, skin warm/dry/pink. 20:00 Reassessment: Patient appears in no apparent distress at this time. Patient and/or vc family updated on plan of care and expected duration. Pain level reassessed. Patient is alert, oriented x 3, equal unlabored respirations, skin warm/dry/pink. Vital Signs: 11:38 BP 135 / 79; Pulse 123; Resp 20 S; Temp 98.0; Pulse Ox 91% on R/A; iw 13:06 BP 116 / 69; Pulse 127; Resp 16; Temp 97.6; Pulse Ox 91% on R/A; Pain 0/10; iw 14:00 BP 124 / 113; Pulse 123; Resp 24; Pulse Ox 89% on R/A; vc 15:00 BP 136 / 64; Pulse 110; Resp 18; Pulse Ox 100% on R/A; vc 16:00 BP 119 / 68; Pulse 107; Resp 22; Pulse Ox 98% ; vc 17:00 BP 125 / 97; Pulse 89; Resp 24; Pulse Ox 98% on R/A; vc 20:00 BP 112 / 96; Pulse 82; Resp 21; Temp 97.7; Pulse Ox 100% on 1 lpm NC; vc [place]ola Coma Score: 12:43 Eye Response: spontaneous(4). Verbal Response: oriented(5). Motor Response: obeys ian commands(6). Total: 15. ED Course: 11:19 Patient arrived in ED. iw 11:20 Cristofer Augustine MD is Attending Physician. ian 11:22 Yamileth Harrison, TANA is Primary Nurse. iw 11:35 Triage completed. iw 12:28 XRAY Chest (1 view) In Process Unspecified. EDMS 12:48 Initial lab(s) drawn, by me, sent to lab. Inserted saline lock: 20 gauge in right em1 antecubital area, using aseptic technique. Blood collected. Missed attempt(s): 20 gauge in right forearm. Bleeding controlled, band aid applied, catheter tip intact. 12:55 CT Head C Spine In Process Unspecified. EDMS 14:04 Leanne Solis MD is Hospitalizing Provider. ian 14:05 Arm band placed on. iw 14:15 laboratory monitor on. Pulse ox on. NIBP on. vc 14:15 Patient has correct armband on for positive identification. Bed in low position. Call vc light in reach. Side rails up X2. 14:50 Oxygen administration via nasal cannula \T\ 2L/min. vc 14:50 Inserted saline lock: 20 gauge in right forearm, using aseptic technique. vc 20:40 No provider procedures requiring assistance completed. Patient admitted, IV remains in vc place. Administered Medications: 13:27 Drug: NS 0.9% 1000 ml Route: IV; Rate: 125 ml/hr; Site: right antecubital; iw 14:52 Drug: Digoxin 0.5 mg Route: IVP; Site: right forearm; vc 17:49 Follow up: Response: No adverse reaction vc 14:54 Drug: Lopressor 2.5 mg Route: IVP; Site: right forearm; vc 17:48 Follow up: Response: No adverse reaction vc 15:00 Drug: Lopressor 2.5 mg Route: IVP; Site: right forearm; vc 17:48 Follow up: Response: No adverse reaction vc 17:48 Follow up: Response: No adverse reaction vc 15:08 Drug: Xopenex 1.25 mg Route: Inhalation; vc 15:08 Drug: AtroVENT Aerosol 0.5 mg Route: Inhalation; vc 15:26 Drug: Lopressor (metoprolol TARTRATE) 50 mg Route: PO; vc 17:48 Follow up: Response: No adverse reaction vc 16:47 Drug: Lopressor 2.5 mg Route: IVP; Site: right antecubital; vc 17:47 Follow up: Response: No adverse reaction vc 16:59 Drug: Lopressor 2.5 mg Route: IVP; Site: right wrist; vc 17:47 Follow up: Response: No adverse reaction vc Outcome: 14:06 Decision to Hospitalize by Provider. ian 20:40 Admitted to Med/surg accompanied by tech, room 205, Report called to TANA Oliveira vc 20:40 Condition: stable 20:40 Instructed on the need for admit. vc 20:50 Patient left the ED. vc Signatures: Dispatcher [employer] EDCristofer Khanna MD MD cha Williams, Irene, RN TANA iw Ralf Headley em1 Ely Parsons RN RN vc
--- NOTE | 2019-09-24 14:07 | EDPHYS ---
Physician Documentation [facility] Name: Martine Stoner Age: 89 yrs Sex: Female : 1930 Arrival Date: 09/24/2019 Time: 11:19 Bed 17 Private MD: ED Physician Cristofer Augustine HPI: 09/23 12:36 This 89 yrs old Female presents to ER via Unassigned with complaints of Near ian Syncope, Irregular Pulse. 12:36 The patient has experienced near-syncope. Onset: The symptoms/episode began/occurred ian just prior to arrival, last night. Duration: The patient has had multiple episodes, that last 10 second(s). Context: the episode(s) was witnessed, by family, son. Associated injury: Head/face: Neck: forehead, right eye, nose and left eye, pain, tenderness. Associated signs and symptoms: Pertinent positives: dizziness, lightheadedness, nausea. Current symptoms: headache, that is mild. The patient has experienced similar episodes in the past, a few times. Historical: - Allergies: 11:40 tolmetin; iw - Home Meds: 14:05 bumetanide 1 mg Oral tab 1 tab once daily [Active]; methocarbamol 500 mg Oral tab twice iw a day [Active]; gabapentin 300 mg oral cap twice a day [Active]; fluticasone 50 mcg/actuation nasal spsn 1 spray once daily [Active]; Vitamin D Oral 50,000 unit daily [Active]; glucosamine-chondroitin 250-200 mg oral tab twice a day [Active]; Vitamin C 500 mg Oral cpER daily [Active]; Co Q-10 200 mg oral cap twice a day [Active]; Eliquis 2.5 mg oral tab 1 tab 2 times per day [Active]; metoprolol tartrate 50 mg Oral tab 1 tab 2 times per day [Active]; Magnesium Oxide Oral daily [Active]; pantoprazole 40 mg oral TbEC 1 tab once daily [Active]; levothyroxine 100 mcg tab 1 tab once daily [Active]; montelukast 10 mg oral tab 1 tab once daily [Active]; levocetirizine 5 mg oral tab 1 tab once daily [Active]; - PMHx: 11:40 DVT; Hypertension; Hypothyroidism; PE; High Cholesterol; Atrial Fib; iw - PSHx: 11:40 Carotid surgery; iw - Immunization history:: Adult Immunizations up to date. - Social history:: Smoking status: Patient/guardian denies using tobacco, but has a distant history of tobacco abuse. ROS: 12:38 Constitutional: Negative for fever, chills, and weight loss, Eyes: Negative for injury, ian pain, redness, and discharge, Respiratory: Negative for shortness of breath, cough, wheezing, and pleuritic chest pain, Abdomen/GI: Negative for abdominal pain, nausea, vomiting, diarrhea, and constipation, Back: Negative for injury and pain, : Negative for injury, bleeding, discharge, and swelling, MS/Extremity: Negative for injury and deformity, Skin: Negative for injury, rash, and discoloration, Neuro: Negative for headache, weakness, numbness, tingling, and seizure, Psych: Negative for depression, anxiety, suicide ideation, homicidal ideation, and hallucinations, Allergy/Immunology: Negative for hives, rash, and allergies, Endocrine: Negative for neck swelling, polydipsia, polyuria, polyphagia, and marked weight changes, Hematologic/Lymphatic: Negative for swollen nodes, abnormal bleeding, and unusual bruising. 12:38 ENT: Positive for of the right eye, nose and left eye, nose bleed. 12:38 Neck: Positive for pain with movement, pain at rest. 12:38 Cardiovascular: Positive for palpitations. 12:38 Abdomen/GI: Positive for nausea. 12:38 Neuro: Positive for dizziness, near syncope, weakness. Exam: 12:38 Constitutional: This is a well developed, well nourished patient who is awake, alert, ian and in no acute distress. Head/Face: Normocephalic, atraumatic. Eyes: Pupils equal round and reactive to light, extra-ocular motions intact. Lids and lashes normal. Conjunctiva and sclera are non-icteric and not injected. Cornea within normal limits. Periorbital areas with no swelling, redness, or edema. ENT: Nares patent. No nasal discharge, no septal abnormalities noted. Tympanic membranes are normal and external auditory canals are clear. Oropharynx with no redness, swelling, or masses, exudates, or evidence of obstruction, uvula midline. Mucous membranes moist. Neck: Trachea midline, no thyromegaly or masses palpated, and no cervical lymphadenopathy. Supple, full range of motion without nuchal rigidity, or vertebral point tenderness. No Meningismus. Chest/axilla: Normal chest wall appearance and motion. Nontender with no deformity. No lesions are appreciated. Respiratory: Lungs have equal breath sounds bilaterally, clear to auscultation and percussion. No rales, rhonchi or wheezes noted. No increased work of breathing, no retractions or nasal flaring. Abdomen/GI: Soft, non-tender, with normal bowel sounds. No distension or tympany. No guarding or rebound. No evidence of tenderness throughout. Back: No spinal tenderness. No costovertebral tenderness. Full range of motion. Female : Normal external genitalia. Skin: Warm, dry with normal turgor. Normal color with no rashes, no lesions, and no evidence of cellulitis. MS/ Extremity: Pulses equal, no cyanosis. Neurovascular intact. Full, normal range of motion. Neuro: Awake and alert, GCS 15, oriented to person, place, time, and situation. Cranial nerves II-XII grossly intact. Motor strength 5/5 in all extremities. Sensory grossly intact. Cerebellar exam normal. Normal gait. Psych: Awake, alert, with orientation to person, place and time. Behavior, mood, and affect are within normal limits. 12:38 Cardiovascular: Rate: tachycardic, Rhythm: irregularly irregular, Pulses: Pulses are 4+ in bilateral radial, brachial, femoral, popliteal, posterior tibial and and dorsalis pedis arteries.. Heart sounds: normal, Edema: is not appreciated, JVD: is not appreciated. 12:44 Musculoskeletal/extremity: DVT Exam: No signs of deep vein thrombosis. no pain, no ian swelling, no tenderness, negative Homans' sign noted on exam, no appreciated bluish discoloration, no erythema, no increased warmth. 13:59 ECG was reviewed by the Attending Physician. [facility] Vital Signs: 11:38 BP 135 / 79; Pulse 123; Resp 20 S; Temp 98.0; Pulse Ox 91% on R/A; iw 13:06 BP 116 / 69; Pulse 127; Resp 16; Temp 97.6; Pulse Ox 91% on R/A; Pain 0/10; iw 14:00 BP 124 / 113; Pulse 123; Resp 24; Pulse Ox 89% on R/A; vc 15:00 BP 136 / 64; Pulse 110; Resp 18; Pulse Ox 100% on R/A; vc 16:00 BP 119 / 68; Pulse 107; Resp 22; Pulse Ox 98% ; vc 17:00 BP 125 / 97; Pulse 89; Resp 24; Pulse Ox 98% on R/A; vc 20:00 BP 112 / 96; Pulse 82; Resp 21; Temp 97.7; Pulse Ox 100% on 1 lpm NC; vc [place] Coma Score: 12:43 Eye Response: spontaneous(4). Verbal Response: oriented(5). Motor Response: obeys ian commands(6). Total: 15. MDM: 11:20 Patient medically screened. ian 12:43 Differential diagnosis: Contusion of Hematoma on Laceration of Intracranial bleed-. ian Differential Diagnosis: cardiac arrhythmia, cerebrovascular accident, drug effect, idiopathic syncope, sepsis, vasovagal episode. Data reviewed: vital signs, nurses notes, lab test result(s), EKG, radiologic studies, CT scan, plain films. Data interpreted: monitor tech: rate is 123 beats/min, Pulse oximetry: on room air is 91 %. Test interpretation: by ED physician or midlevel provider: ECG, plain radiologic studies. Counseling: I had a detailed discussion with the patient and/or guardian regarding: the historical points, exam findings, and any diagnostic results supporting the discharge/admit diagnosis, lab results, radiology results, the need for further work-up and treatment in the hospital. 13:56 Response to treatment: the patient's symptoms have markedly improved after treatment. [facility] ED course: pt alert and oriented feeling better, dw dr beasley, admitting and will consult drs. lou and dr cohn. 09/23 12:12 Order name: Basic Metabolic Panel; Complete Time: 13:50 iw 09/23 12:12 Order name: CBC with Diff; Complete Time: 13:50 iw 09/23 12:12 Order name: LFT's; Complete Time: 13:50 iw 09/23 12:12 Order name: Magnesium; Complete Time: 13:50 iw 09/23 12:12 Order name: NT PRO-BNP; Complete Time: 13:50 iw 09/23 12:12 Order name: PT-INR; Complete Time: 13:50 iw 09/23 12:12 Order name: Troponin (emerg Dept Use Only); Complete Time: 13:50 iw 09/23 12:12 Order name: XRAY Chest (1 view); Complete Time: 13:50 iw 09/23 12:35 Order name: TSH; Complete Time: 13:50 ian 09/23 12:35 Order name: CT Head C Spine; Complete Time: 13:50 ian 09/23 12:35 Order name: Urine Culture ian 09/23 14:06 Order name: ABG; Complete Time: 15:48 bd 09/23 14:56 Order name: Urine Dipstick--Ancillary (enter results); Complete Time: 15:48 hb 09/23 15:04 Order name: Facial Bones W/ Mpr; Complete Time: 18:29 EDMS 09/23 12:12 Order name: EKG; Complete Time: 12:13 iw 09/23 12:12 Order name: Cardiac monitoring; Complete Time: 13:28 iw 09/23 12:12 Order name: EKG - Nurse/Tech; Complete Time: 13:28 iw 09/23 12:12 Order name: IV Saline Lock; Complete Time: 12:47 iw 09/23 12:12 Order name: Labs collected and sent; Complete Time: 12:47 iw 09/23 12:12 Order name: O2 Per Protocol; Complete Time: 13:27 iw 09/23 15:12 Order name: Carotid Artery Bilateral EDPR 09/23 12:12 Order name: O2 Sat Monitoring; Complete Time: 13:28 iw 09/23 12:35 Order name: Urine Dipstick-Ancillary (obtain specimen); Complete Time: 14:53 ian EC:59 Rate is 125 beats/min. Rhythm is irregularly irregular. QRS [place] is Normal. NV interval ian is normal. QRS interval is normal. QT interval is normal. No Q waves. T waves are Normal. No ST changes noted. Clinical impression: Atrial Fibrillation and No evidence of ischemia. Interpreted by me. Reviewed by me. Administered Medications: 13:27 Drug: NS 0.9% 1000 ml Route: IV; Rate: 125 ml/hr; Site: right antecubital; iw 14:52 Drug: Digoxin 0.5 mg Route: IVP; Site: right forearm; vc 17:49 Follow up: Response: No adverse reaction vc 14:54 Drug: Lopressor 2.5 mg Route: IVP; Site: right forearm; vc 17:48 Follow up: Response: No adverse reaction vc 15:00 Drug: Lopressor 2.5 mg Route: IVP; Site: right forearm; vc 17:48 Follow up: Response: No adverse reaction vc 17:48 Follow up: Response: No adverse reaction vc 15:08 Drug: Xopenex 1.25 mg Route: Inhalation; vc 15:08 Drug: AtroVENT Aerosol 0.5 mg Route: Inhalation; vc 15:26 Drug: Lopressor (metoprolol TARTRATE) 50 mg Route: PO; vc 17:48 Follow up: Response: No adverse reaction vc 16:47 Drug: Lopressor 2.5 mg Route: IVP; Site: right antecubital; vc 17:47 Follow up: Response: No adverse reaction vc 16:59 Drug: Lopressor 2.5 mg Route: IVP; Site: right wrist; vc 17:47 Follow up: Response: No adverse reaction vc Disposition: 09/24/19 14:06 Hospitalization ordered by Leanne Beasley for Inpatient Admission. Preliminary diagnosis are Dyspnea, Hypoxemia, Atrial fibrillation and flutter - with RVR, Unspecified kidney failure - CHRONIC, Respiratory failure, unspecified with hypercapnia, Hypokalemia. - Bed requested for Telemetry/MedSurg (Inpatient). - Status is Inpatient Admission. vc - Condition is Fair. - Problem is new. - Symptoms have improved. Signatures: Dispatcher [employer] EDMS Jolie Horn Corey, MD MD cha Williams, Irene, RN RN iw Ely Parsons RN RN vc Corrections: (The following items were deleted from the chart) 14:34 14:06 Hospitalization Ordered by Leanne Baesley MD for Inpatient Admission. Preliminary ian diagnosis is Dyspnea; Hypoxemia; Atrial fibrillation and flutter - with RVR; Unspecified kidney failure - CHRONIC. Bed requested for Telemetry/MedSurg (Inpatient). Status is Inpatient Admission. Condition is Fair. Problem is new. Symptoms have improved. ian 15:49 14:34 09/24/2019 14:06 Hospitalization Ordered by Leanne Beasley MD for Inpatient ian Admission. Preliminary diagnosis is Dyspnea; Hypoxemia; Atrial fibrillation and flutter - with RVR; Unspecified kidney failure - CHRONIC; Respiratory failure, unspecified with hypercapnia. Bed requested for Telemetry/MedSurg (Inpatient). Status is Inpatient Admission. Condition is Fair. Problem is new. Symptoms have improved. ian 16:27 15:49 09/24/2019 14:06 Hospitalization Ordered by Leanne Beasley MD for Inpatient bd Admission. Preliminary diagnosis is Dyspnea; Hypoxemia; Atrial fibrillation and flutter - with RVR; Unspecified kidney failure - CHRONIC; Respiratory failure, unspecified with hypercapnia; Hypokalemia. Bed requested for Telemetry/MedSurg (Inpatient). Status is Inpatient Admission. Condition is Fair. Problem is new. Symptoms have improved. ian 16:41 16:27 09/24/2019 14:06 Hospitalization Ordered by Leanne Beasley MD for Inpatient bd Admission. Preliminary diagnosis is Dyspnea; Hypoxemia; Atrial fibrillation and flutter - with RVR; Unspecified kidney failure - CHRONIC; Respiratory failure, unspecified with hypercapnia; Hypokalemia. Bed requested for Telemetry/MedSurg (Inpatient). Status is Inpatient Admission. Condition is Fair. Problem is new. Symptoms have improved. bd 20:50 16:41 09/24/2019 14:06 Hospitalization Ordered by Leanne Beasley MD for Inpatient vc Admission. Preliminary diagnosis is Dyspnea; Hypoxemia; Atrial fibrillation and flutter - with RVR; Unspecified kidney failure - CHRONIC; Respiratory failure, unspecified with hypercapnia; Hypokalemia. Bed requested for Telemetry/MedSurg (Inpatient). Status is Inpatient Admission. Condition is Fair. Problem is new. Symptoms have improved. bd
[2019-09-24 14:16] LABS: Arterial Blood Carboxyhemoglob 1.4 % (0-1.5); Blood Gas Oxyhemoglobin 88.9 % (94-97); Blood O2 Saturation 90.9 % (92-98.5)
[2019-09-24] MEDS ORDERED: IPRATROPIUM BROM 0.5MG/2.5ML ONE (14:43)
[2019-09-24] MEDS ORDERED: LEVALBUTEROL 1.25 MG/3 ML NEB ONE (14:43)
[2019-09-24] MEDS ORDERED: DIGOXIN 0.25 MG/ML AMP ONE (14:44)
[2019-09-24] MEDS ORDERED: METOPROLOL TARTRATE 5 MG/5 ML INJ IV ONE ×2 (14:44→16:48)
[2019-09-24 15:10] LABS: Urine Blood NEGATIVE (NEG); Urine Glucose NEGATIVE (NEG); Urine Protein TRACE (NEG)
[2019-09-24] MEDS ORDERED: METOPROLOL TAR 50 MG TAB ONE (15:21)
--- NOTE | 2019-09-24 16:01 | RAD REPORT ---
EXAM DESCRIPTION: CT - Facial Bones W/ Mpr - 09/24/2019 3:42 pm CLINICAL HISTORY: Facial injury status post fall. Facial pain COMPARISON: None TECHNIQUE: Computed axial tomography of the face was obtained. Coronal and sagittal reconstruction w as performed. All CT scans are performed using dose optimization technique as appropriate and may include automated exposure control or mA/KV adjustment according to patient size. FINDINGS: A fracture is not seen. A TMJ dislocation is not noted. The globes are intact. Mild fluid within the sphenoid sinus may indicate acute sinusitis IMPRESSION: Negative for a facial fracture.
--- NOTE | 2019-09-24 17:33 | EKG ---
Test Date: 2019-09-24 Test Time: 11:19:42 Cattle Manager: TATIANA MEASUREMENT RESULTS: Intervals: Rate: 125 CT: QRSD: 76 QT: 322 QTc: 464 [place]: P: CT: QRS: 23 T: 93 INTERPRETIVE STATEMENTS: Atrial fibrillation with rapid ventricular response Nonspecific T wave abnormality, probably digitalis effect Abnormal ECG Compared to ECG 09/07/2019 12:10:33 T-wave abnormality now present Electronically Signed On 09-24-19 17:32:18 CDT by Tyler Johnson
--- NOTE | 2019-09-24 20:07 | RAD REPORT ---
EXAM DESCRIPTION: USCarotid Artery Bilateral09/24/2019 7:28 pm CLINICAL HISTORY: syncope COMPARISON: None FINDINGS: The velocity of the right internal carotid artery equals 129 cm/sec. The right ICA/CCA rat io 1.3 Evaluation of the left internal carotid artery was suboptimal. Mild plaque in the left common carotid artery Mild plaque is present within the left internal carotid artery. The vertebral arteries demonstrate antegrade flow IMPRESSION: Mild plaque within the right internal carotid artery Suboptimal evaluation of the left internal carotid artery. If clinically indicated further evaluation with MRA neck could be obtained NASCET criteria used. Mild 0-49% stenosis Moderate 50-69% stenosis Severe 70-99% stenosis
[2019-09-24] MEDS ORDERED: METOPROLOL TARTRATE 5 MG/5 ML INJ IV PRN (21:08)
[2019-09-24] MEDS ORDERED: NA CHLORIDE 0.9% 1,000 ML IV SCH (21:08)
[2019-09-24] MEDS ORDERED: ACETAMINOPHEN 500 MG TAB PO PRN (21:08)
[2019-09-24] MEDS ORDERED: ONDANSETRON 4 MG/2 ML VIAL IV PRN (21:08)
[2019-09-24 23:00] VITALS: BMI 29.5
--- NOTE | 2019-09-25 00:59 | HP ---
Date of Admission: 09/24/2019 Primary Care Physician: Dr. Langston. Code Status: Full. Chief Complaint: Fall. History Of Present Illness: Patient is an 89-year-old female with past medical history of atrial fibrillation, recently diagnosed in recent visit in August of 2019. Patient was discharged on 09/10/2019. Patient also has past medical history of hypertension; DVT, on Eliquis; dyslipidemia; hypothyroidism; venous insufficiency, comes in with multiple episodes of fall and syncopal episodes. Patient was going to the bathroom and fell before she was able to sit on the commode and bruised her left arm and also had some bruising of her nose and pain. Patient did have nosebleed, which subsequently stopped. Several hours later, patient attempted to go to the bathroom again and had similar episode. However, at this time, the patient's son was able to catch her and she did not fall. Patient states that she was out for approximately a minute or so. Her son was nearby and heard her and came out to help her. Patient otherwise denies any chest pain. Does report some shortness of breath. In the ER, she was found to be in atrial fibrillation with RVR rate in the 120s to 140s. Her symptoms are constant, moderate, progressively worsening. Patient's labs showed potassium 3.3, creatinine was 2.74. Her baseline is around 1.4. ABG showed pH of 7.4, pCO2 was 59, pO2 was 62. Chest x-ray was clear. CT scan of the head and spine did not show any acute abnormalities. When the patient was seen in the ER, she was awake, alert, oriented x3, in some mild distress due to pain. Past Medical History: Atrial fibrillation, on Eliquis; history of DVT; hypertension; dyslipidemia; hypothyroidism; venous insufficiency. Surgical History: Hip replacement, back infusion, hysterectomy, appendectomy, TMJ metal plate in both jaws. Allergies: TO TOLECTIN THAT CAUSES SHORTNESS OF BREATH. Medications: List reviewed. Social History: Patient denies any tobacco use, alcohol use, or illicit drug use. Lives at home with her son. Family History: Father had cancer. Mother had hypertension. Review of Systems: Ten-point system reviewed, negative except as per HPI. Physical Examination: Vital Signs: Blood pressure 135/79, pulse 127, respirations 20, temperature 98, O2 91% on room air. General: The patient is awake, alert, and oriented x3. Some mild distress. HEENT: The patient has bruising of her nose on the bridge with some dried blood around the nostrils. No other abrasions seen on the face except on the nose. PERRLA, EOMI. Moist mucous membranes. Oropharynx is clear. Conjunctivae are anicteric. Neck: Supple. No JVD. Trachea midline. CVS: S1, S2. Irregularly irregular with rapid rate. Peripheral pulses present. Respiratory: Moving air well bilaterally. No wheezing or stridor. No use of accessory muscles. Gastrointestinal: Abdomen is soft, nontender, nondistended. Positive bowel sounds. No guarding or rigidity. Extremities: The patient has mild pedal edema, worse on the left lower extremity. Neuro: Cranial nerves 2 through 12 intact grossly. No focal neurological deficits. Speech is normal. Strength is symmetric, bilateral upper and lower extremities. Sensation intact to light touch. Psych: Mood is okay. Affect is full. Insight and judgment are good. Laboratory Data: ABG; pH 7.4, pCO2 of 59, pO2 of 62, bicarb 36. Sodium 138, potassium 3.3, chloride 94, CO2 of 35, BUN 45, creatinine 2.74, glucose 117, calcium 9.6, magnesium 2. Troponin 0.04. BNP 9598. TSH 0.936. UA is pending. INR 1.15. WBC 6.5, H and H 15.3 and 46.6, platelets 232. Imaging Studies: Chest x-ray shows no acute abnormalities. Heart is mild to moderately enlarged. Head CT cervical spine shows no acute intracranial abnormality. No cervical fracture. 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 Hemangioma suspected within the T2 vertebral body. Assessment: 89-year-old female with: 1. Syncope, unclear etiology, may be related to orthostatic hypotension versus neurogenic or cardiogenic cause. We will consult Cardiology. Patient does have atrial fibrillation. We will obtain carotid artery ultrasound if not done previously. 2. Status post fall. Patient has some trauma to her face. CT head and neck are negative for any acute fractures or bleed. We will obtain facial sinus CT to rule out any nasal fracture or hematoma. Patient is on Eliquis. 3. Atrial fibrillation with rapid ventricular response. Patient has been given digoxin and Lopressor in the ER. We will resume the patient's Eliquis and consult Cardiology. We will resume her home medication. 4. Dyspnea, likely due to atrial fibrillation with rapid ventricular response. ABG does show some hypoxemia and CO2 retention likely possibly from COPD. We will consult pulmonology. Placed on supplemental oxygen. 5. History of deep vein thrombosis, on Eliquis. 6. Mixed dyslipidemia. We will continue statin. 7. Essential hypertension. Resume home medications as appropriate. 8. Hypothyroidism. TSH within normal limits. Continue home medications. 9. Venous insufficiency. 10. Diastolic congestive heart failure, stable. 11. Acute on chronic kidney disease, stage 3. Patient was seen by Dr. Fuentes less than 2 weeks ago. We will consult Nephrology. We will monitor creatinine level and avoid NSAIDs, likely from prerenal azotemia and dehydration. Will place on gentle IV fluid hydration due to history of CHF. Chest x-ray at this point is clear. Plan: Admit patient to Med-Surg, place as inpatient. Length of stay greater than 2 midnights. ELIZA Voice ID: [id number] [email or web address]
--- NOTE | 2019-09-25 03:09 | CON ---
Date of Consultation: 09/24/[address] Solis's service on 09/24/2019 because of syncope. I saw the patient on 09/24/2019. History Of Present Illness: Ms. Stoner is an 89-year-old woman we just saw her in the office not long ago. She has a past medical history of DVT, hypothyroidism, high cholesterol, atrial fibrillation, c arotid endarterectomy, as well as hypertension. She came in with a near syncopal episode. Has had m ultiple episodes similar to this. Patient takes bumetanide 1 mg daily. She takes inhalers. She terry es metoprolol 50 mg b.i.d. She is on Eliquis 2.5 mg daily. She is on Synthroid. She is on Singulai r. She is on thyroid medication. No true syncope, it was a presyncopal episode. No trauma at this time. No symptoms before the episode or after the episode. She did have some pain in the forehead, right eye, nose, and the left eye from the fall. She denied any fever or chills. Denied any nausea or vomiting or diaphoresis. Denied any PND, orthopnea, or palpitations. Past Medical History: As stated above. Allergies: TOLMETIN. Medications: Her present medication includes only metoprolol. Review of Systems: Negative. Social History: Negative. Family History: Noncontributory. Physical Examination: Vital Signs: Blood pressure was 112/96, her heart rate was 82, in atrial fibrillation. She weighed 194 pounds. She was afebrile. Her O2 saturations were 100% on nasal cannula. HEENT: Negative. Neck: Supple. No bruit. Chest: Clear to auscultation and percussion. Cardiac: Revealed atrial fibrillation. Abdomen: Benign. Extremities: Revealed no clubbing, cyanosis, or edema. Diagnostic Data: PO2 was 62, pCO2 was 59, pH was 7.4. She had a creatinine of 2.74. Her hemoglobin was 15.3. Her potassium was 3.3. Her BNP was 9598 with a negative troponin. EKG showed atrial fibrillation with rapid ventricular response. Her chest x-ray was negative. Impression And Plan: Syncope, probably secondary to orthostatic hypotension. I doubt this is relate d to atrial fibrillation. Patient is on metoprolol and Eliquis. I would like to continue those. We may have to discontinue her diuretic or any other antihypertensive medication. She already had a ca rotid Doppler that is negative. I am comfortable with her going home tomorrow only on metoprolol and Eliquis. No other diuretics, and I will see her in the office in the near future. I would like to note that she had an echocardiogram done on 09/07/2019, which does not need to be repeated. This ca wed aortic sclerosis, normal ejection fraction, and a very small pericardial effusion. As stated ear lier, her carotid Doppler is negative. I think the only option for her syncope is orthostatic hypote nsion. I doubt that she is having occasional bradycardia. I can always arrange for an event monitor in the office as an outpatient. I will continue to follow her. WILLIAM/CARLOS MANUEL Voice ID: [id number] Report ID: [id number]
[2019-09-25 04:28] LABS: Absolute Lymphocytes (CBC) 1.7 K/uL (0.7-4.9); Basophils % 0.6 % (0-1.3); Hematocrit 39.4 % (36.0-45.0); Lymphocytes % 27.7 % (15.3-44.8); MPV 9.3 fL (7.6-11.3); RBC Red Blood Cell Count 4.09 M/uL (3.86-4.86)
[2019-09-25 04:41] LABS: Bilirubin Total 0.6 mg/dL (0.2-1.0); Potassium 3.2 mmol/L (3.5-5.1)
[2019-09-25] MEDS: NA CHLORIDE 0.9% 1,000 ML IV SCH ×2 (08:16→13:11)
[2019-09-25] MEDS: APIXABAN 2.5 MG TABLET PO SCH ×2 (10:00→21:36)
--- NOTE | 2019-09-25 10:58 | P.CNS ---
Date of Consult: 09/25/19 Reason for Consult: CARLOS on CKD stage 3, Hypokalemia Requesting Physician: Leanne Solis Chief Complaint: A fib RVR History of Present Illness: This is a 83-year-old female patient with medical history significant for hypertension, diabetes type 2, hyperlipidemia, chronic kidney disease stage 3, who also evaluated for episode of atrial fibrillation with rapid ventricular response. She was also noted to have acute kidney injury on chronic kidney disease on labs as her creatinine had increased from 1.5 at last discharged to 2.72 today. No symptoms of nausea, vomiting, diarrhea or fever reported. Allergies tolmetin sodium [From Tolectin] Allergy (Severe, Verified 09/24/19 23:02) Shortness of breath Home Medications: Ascorbic Acid [Vitamin C*] 500 mg PO DAILY 04/19/15 Fluticasone [Flonase 50MCG Nasal [place]*] 2 sprays NS DAILY PRN 04/19/15 Levothyroxine [Synthroid*] 100 mcg PO DAILY 04/19/15 Montelukast [Singulair*] 10 mg PO DAILY 04/19/15 Acetaminophen 325 mg PO Q4H PRN 04/13/17 Cholecalciferol (Vitamin D3) [Vitamin D 5,000 IU Cap*] 5,000 unit PO DAILY 04/13/17 Gluc Salas/Chondro Salas A/Vit C/Mn [Glucosamine-Chondroitin Cap] 750 mg PO BID 04/13/17 Ubidecarenone [Co Q-10] 100 mg PO DAILY 04/13/17 Clopidogrel Bisulfate [Plavix*] 75 mg PO DAILY 09/07/19 Levocetirizine Dihydrochloride [Allergy Relief] 5 mg PO DAILY 09/07/19 Apixaban [Eliquis *] 2.5 mg PO BID #60 tablet 09/09/19 Magnesium Chloride [Mag Delay] 64 mg PO BID #60 tablet. 09/09/19 Metoprolol Tartrate [Lopressor*] 50 mg PO BID 6AM 6PM #120 tab 09/09/19 Saliva Stimulant Agents Comb.3 [Biotene Moisturizing Mouth] 44.3 ml MM QID 30 Days #1 bottle 09/09/19 Pantoprazole [Protonix Tab*] 40 mg PO BIDAC #60 tab 09/10/19 Gabapentin 300 mg PO BID 09/24/19 - Past Medical/Surgical History Diabetic: No -: Dyslipidemia -: DVT -: HTN -: Hypothyroidism -: Venous insufficiency -: pulmonary embolism -: chronic kidney disease -: Hip replacement left -: Back infusion -: Hysterectomy -: Appendectomy -: TMJ mental plate both jaws - Family History Father Medical History: Cancer Mother Medical History: Hypertension - Social History Smoking Status: Former smoker Alcohol use: No CD- Drugs: No Caffeine use: No Place of Residence: Home Review of Systems Unremarkable Physical Examination Temp Pulse Resp BP Pulse Ox 97.7 F 88 17 124/59 L 95 09/25/19 08:00 09/25/19 08:00 09/25/19 08:00 09/25/19 08:00 09/25/19 08:00 General: Alert, Oriented x3 HEENT: Atraumatic, PERRLA Respiratory: Clear to auscultation bilaterally Cardiovascular: No edema Gastrointestinal: Normal bowel sounds Neurological: Normal speech, Normal strength at 5/5 x4 extr, Cranial nerves 3-12 intact Laboratory Data (last 24 hrs) 09/24/19 12:45: PT 13.5 H, INR 1.15 09/24/19 12:45: WBC 6.5 D, Hgb 15.3 H, Hct 46.6 H, Plt Count 232 D 09/24/19 12:45: Sodium 138, Potassium 3.3 L, BUN 45 H, Creatinine 2.74 H, Glucose 117 H, Magnesium 2.0, Total Bilirubin 0.8, AST 18, ALT 13, Alkaline Phosphatase 59 Conclusions/Impression: Hypokalemia CARLOS on CKD stage 3 Hypertension A fib RVR Plan: Present episode of acute kidney injury on chronic kidney disease is deemed secondary to volume depletion. There is improvement in creatinine from 2.7 to 2.2 after iv bolus administration. Her dose of Lasix has been held. For now will continue hydration, monitor I/O, and replete deficient electrolytes of potassium. Will continue to monitor her kidney function and avoid nephrotoxins. It is okay to discharge this patient home as per Nephrology Service. We will follow this patient up on outpatient basis for monitoring of kidney function.
[2019-09-25] MEDS ORDERED: POTASSIUM CL SA 10 MEQ TAB PO ONE (11:03)
--- NOTE | 2019-09-25 12:16 | P.CNS ---
Date of Consult: 09/25/19 Reason for Consult: Respiratory failure Chief Complaint: A fib RVR History of Present Illness: Patient is 89 years of age went to the bathroom fell and nauseated almost passed out patient was in AFib compliant with her medication found to be hypoxic little hypercapnic history of thromboembolism Allergies tolmetin sodium [From Tolectin] Allergy (Severe, Verified 09/24/19 23:02) Shortness of breath Home Medications: Ascorbic Acid [Vitamin C*] 500 mg PO DAILY 04/19/15 Fluticasone [Flonase 50MCG Nasal [place]*] 2 sprays NS DAILY PRN 04/19/15 Levothyroxine [Synthroid*] 100 mcg PO DAILY 04/19/15 Montelukast [Singulair*] 10 mg PO DAILY 04/19/15 Acetaminophen 325 mg PO Q4H PRN 04/13/17 Cholecalciferol (Vitamin D3) [Vitamin D 5,000 IU Cap*] 5,000 unit PO DAILY 04/13/17 Gluc Salas/Chondro Salas A/Vit C/Mn [Glucosamine-Chondroitin Cap] 750 mg PO BID 04/13/17 Ubidecarenone [Co Q-10] 100 mg PO DAILY 04/13/17 Clopidogrel Bisulfate [Plavix*] 75 mg PO DAILY 09/07/19 Levocetirizine Dihydrochloride [Allergy Relief] 5 mg PO DAILY 09/07/19 Apixaban [Eliquis *] 2.5 mg PO BID #60 tablet 09/09/19 Magnesium Chloride [Mag Delay] 64 mg PO BID #60 tablet. 09/09/19 Metoprolol Tartrate [Lopressor*] 50 mg PO BID 6AM 6PM #120 tab 09/09/19 Saliva Stimulant Agents Comb.3 [Biotene Moisturizing Mouth] 44.3 ml MM QID 30 Days #1 bottle 09/09/19 Pantoprazole [Protonix Tab*] 40 mg PO BIDAC #60 tab 09/10/19 Gabapentin 300 mg PO BID 09/24/19 - Past Medical/Surgical History Diabetic: No -: Dyslipidemia -: DVT -: HTN -: Hypothyroidism -: Venous insufficiency -: pulmonary embolism -: chronic kidney disease -: Hip replacement left -: Back infusion -: Hysterectomy -: Appendectomy -: TMJ mental plate both jaws - Family History Father Medical History: Cancer Mother Medical History: Hypertension - Social History Smoking Status: Former smoker Alcohol use: No CD- Drugs: No Caffeine use: No Place of Residence: Home Review of Systems 10-point ROS is otherwise unremarkable Physical Examination Temp Pulse Resp BP Pulse Ox 97.7 F 88 17 124/59 L 95 09/25/19 08:00 09/25/19 08:00 09/25/19 08:00 09/25/19 08:00 09/25/19 08:00 General: Alert, Oriented x3 HEENT: Atraumatic Neck: Supple Respiratory: Clear to auscultation bilaterally Cardiovascular: No edema, Irregular heart rate/rhythm Gastrointestinal: Normal bowel sounds, Soft and benign Laboratory Data (last 24 hrs) 09/24/19 12:45: PT 13.5 H, INR 1.15 09/24/19 12:45: WBC 6.5 D, Hgb 15.3 H, Hct 46.6 H, Plt Count 232 D 09/24/19 12:45: Sodium 138, Potassium 3.3 L, BUN 45 H, Creatinine 2.74 H, Glucose 117 H, Magnesium 2.0, Total Bilirubin 0.8, AST 18, ALT 13, Alkaline Phosphatase 59 - Problems (1) Respiratory failure Current Visit: Yes Status: Acute Plan: Patient is 89 years of age admitted with some weakness possible syncope she has AFib mildly hypoxic hypercarbic I suspect she has underlying obstructive airways disease not qualify for home O2 will check her off the oxygen and she would probably benefit from a bronchodilator start up with Advair which he is easy to use patient will need outpatient pulmonary function testing will follow up with the telephone visit in 2 weeks patient has some orthostatic changes may benefit for some IV fluids Qualifiers: Chronicity: chronic
--- NOTE | 2019-09-25 12:27 | DS ---
Date of service at 09/25/19 Consultants: Dr. Johnson with Cardiology. Discharge Diagnoses: 1. Syncopal episode secondary to orthostatic hypotension. 2. Status post fall, no trauma. 3. Atrial fibrillation with rapid ventricular response, now rate controlled. 4. Dyspnea with exertion secondary to atrial fibrillation. 5. Mixed dyslipidemia. 6. Acute on chronic kidney disease stage 3, improving likely from diuretics and dehydration. 7. Essential hypertension, stable. 8. Hypothyroidism, stable. 9. Venous insufficiency. 10. Diastolic congestive heart failure, chronic. Hospital Course: Patient is an 89-year-old female with history of atrial fibrillation, recently discharged from the hospital at the end of August this year, comes in with multiple falls and syncopal episode. Patient was found to have some dehydration, was in atrial fibrillation with RVR, received Dig and Lopressor with her rate improving. She had some electrolyte abnormalities and creatinine was above her baseline at 2.74. She was somewhat hypoxic. CT scans of the head and spine and facial sinus did not show any acute abnormalities. The patient was seen by Dr. Johnson with Cardiology. He continued the metoprolol for rate control and Eliquis for stroke prophylaxis. The patient's rate improved. Her shortness of breath also improved. Pulmonology was also consulted for possible COPD and her hypoxemia and CO2 retention, considering possible supplemental oxygenation if needed. Patient also seen by her microchip specialist Dr. Pimentel. Plan was to stop her Bumex as she is somewhat dehydrated and has orthostatic hypotension. Patient was counseled regarding continuing hydration, stopping her diuretics and to be very cautious when getting up from sitting to a standing position. She will need to wait 5 minutes before getting up and she is to get up very slowly and use a walker or cane to get around to avoid any further syncopal episodes. This should improve as her hydration continues, electrolytes were replaced. The patient was then cleared from desktop support consultant's standpoint and the patient was then discharged home with home health care in a stable condition. Activity: Fall precautions. Medications: As per medication reconciliation list. Bumex. Followup: Follow up with primary care physician in 2-3 days. Follow up with exhibits curator, Dr. Johnson in 2 weeks. Follow up with microchip specialist, Dr. Pimentel in 2 weeks. Follow up with auto glass installer, Dr. Hernandez in 1 week. Return to ER for worsening condition. Diet: Low-sodium, free fluid restriction. Physical Examination: General: Awake, alert, oriented x3. Elderly female, no acute distress. CVS: S1 S2. Irregularly irregular. Respiratory: Moving air well bilaterally. Abdomen: Soft, nontender, nondistended. Positive bowel sounds. Extremities: No clubbing, cyanosis, or edema. Neurologic: Nonfocal. Skin: Patient has some bruising on her left arm and nose. /MODJimbo Voice ID: [id number] Report ID: [id number] MTDD
[2019-09-25] MEDS: PANTOPRAZOLE 40MG TABLET PO SCH (16:51)
[2019-09-25] MEDS: METOPROLOL TAR 50 MG TAB PO SCH (16:51)
[2019-09-25] MEDS: GABAPENTIN 300 MG CAP PO SCH (21:35)
[2019-09-26] MEDS: METOPROLOL TAR 50 MG TAB PO SCH (05:55)
[2019-09-26] MEDS: NA CHLORIDE 0.9% 1,000 ML IV SCH (05:59)
[2019-09-26 06:12] LABS: Absolute Lymphocytes (CBC) 1.4 K/uL (0.7-4.9); Basophils % 0.9 % (0-1.3); Hematocrit 38.4 % (36.0-45.0); MPV 8.6 fL (7.6-11.3)
[2019-09-26 06:29] LABS: Albumin 2.6 g/dL (3.4-5.0); Bilirubin Total 0.6 mg/dL (0.2-1.0); Protein, Total 5.7 g/dL (6.4-8.2)
[2019-09-26] MEDS ORDERED: LEVOTHYROXINE SOD 0.1 MG TAB PO SCH (06:30)
[2019-09-26] MEDS ORDERED: HOME MED 1 EA UNK (Levocetirizine Dihydrochloride [Allergy Relief] 5 MG) PO SCH (09:00)
[2019-09-26] MEDS ORDERED: MONTELUKAST 10 MG TAB PO SCH (09:00)
[2019-09-26] MEDS ORDERED: CLOPIDOGREL 75 MG TABLET PO SCH (09:00)
[2019-09-26] MEDS ORDERED: CETIRIZINE HCL 5 MG TABLET PO SCH (09:00)
[2019-09-26 09:01] VITALS: O2SAT 97
[2019-09-26] MEDS: GABAPENTIN 300 MG CAP PO SCH (09:22)
[2019-09-26] MEDS: APIXABAN 2.5 MG TABLET PO SCH (09:22)
[2019-09-26] MEDS: PANTOPRAZOLE 40MG TABLET PO SCH (09:22)
[2019-09-26 09:38] VITALS: BP 154/63; TEMP 97.3
--- NOTE | 2019-09-26 10:06 | PN ---
Date of Progress Note: 09/25/2019 History Of Present Illness: Patient seen and examined. Chart reviewed and case discussed with TANA Hernandez. Patient was to be discharged yesterday; however, her orthostatics were still positiv e. Today, patient's orthostatics are negative. She is much improved after IV fluid hydration. Medications: List reviewed. Physical Examination: Vital Signs: Temperature 97.9, heart rate 94, blood pressure 134/62, respirations 14, O2 99% on 2 L. Orthostatic vital signs: Lying, 154/63, heart rate 84; sitting, 124/58, heart rate 100; standing, 120/80. General: Awake, alert, oriented x3. Elderly female, not in any acute distress. CV: S1, S2, irregularly irregular. Respiratory: Moving air well bilaterally. No wheezing or stridor. Gastrointestinal: Abdomen is soft, nontender, nondistended. Positive bowel sounds. Extremities: No clubbing, cyanosis, or edema. Skin: Patient has multiple abrasions and ecchymoses from her fall on the left arm, nasal bridge, and left forehead. Neurologic: Nonfocal. Laboratory Data: Sodium 145, potassium 4, chloride 107, CO2 of 34, BUN 36, creatinine 1.61, glucose 89. WBC 4.8, H and H 12.7 and 38.4, platelets 202, neutrophils 50%. Urine culture, mixed karyn. Assessment: An 89-year-old female with. 1.Syncopal episode secondary to orthostatic hypotension. 2.Status post fall, no acute fractures. 3.Atrial fibrillation with rapid ventricular response, now with controlled rate. 4.Dyspnea with exertion, secondary to atrial fibrillation, resolved. 5.Mixed dyslipidemia. 6.Acute on chronic kidney disease, stage 3, improved. 7.Essential hypertension, stable. 8.Hypothyroidism, stable. 9.Venous insufficiency. 10.Diastolic congestive heart failure, chronic. 11.Chronic obstructive pulmonary disease, chronic bronchitis. Patient will need to follow up with P ulmonology as an outpatient. She does seem to retain some CO2; however, is non-oxygen dependent. Sh e will need PFT workup as an outpatient. Plan: Discharge home today with Home Health. Patient has been instructed that she does get orthosta tic from lying to sitting. She needs to stay in the seated position for at least 5 minutes before at tempting to get up. She needs to stay next to the bed or the couch after she gets up very slowly and to utilize her walker and to make sure that she is not getting dizzy before she starts taking steps. If she does get dizzy, she needs to sit back down. Physical therapist has also worked with the gabrielle dorantes. She will also have Home Health. Family not interested in [facility] facility placement a t this time. /CARLOS MANUEL Voice ID: [id number] Report ID: [id number]
--- NOTE | 2019-09-26 20:58 | PN ---
Date of Progress Note: 09/25/2019 Ms. Stoner is a patient of mine in the office. She is 89 years old. She has a history of DVT, hypothy roidism, atrial fibrillation. She is status post carotid endarterectomy. She has hypertension and h igh cholesterol. She came in with syncope, was found to have an elevated creatinine of 2.74. Nephro flynn is following. EKG initially showed atrial fibrillation with rapid ventricular response. Today, she remained in atrial fibrillation. Her heart rate is 90. Her blood pressure is 134/62. Her last creatinine was 2.22, which has improved with hydration. Her present medical regimen included Eliqui s, Plavix, Neurontin, Synthroid, metoprolol 50 mg b.i.d. I will continue this present regimen. I re ally think her last episode of syncope was probably secondary to orthostatic hypotension. Nephrology is involved. I would not change her atrial fibrillation treatment at this point. I am comfortable with her going home. I will make an appointment for her to see me and I will also make an appointmen t for her to see an service mechanic in [place] for possible tachy-louann arrhythmia. Maybe a pace maker is needed. WILLIAM/CARLOS MANUEL Voice ID: [id number] Report ID: [id number]
== END 2019-09-26 11:20 | disposition home health service (06) | DRG 312 ==
LOC: ER 11:13 → INTOOBSV 14:20 → ERHOLD 14:20 → OBSVTOIN 14:20 → 2ND 20:30
PROVIDERS: ADMIT Family Medicine; ATTEND Family Medicine
DX: I95.1 Orthostatic hypotension (principal); J96.22 Acute and chronic respiratory failure with hypercapnia; J96.21 Acute and chronic respiratory failure with hypoxia; I50.32 Chronic diastolic (congestive) heart failure; I13.0 Hypertensive heart and chronic kidney disease with heart failure and stage 1 through stage 4 chronic kidney disease, or unspecified chronic kidney disease; I48.91 Unspecified atrial fibrillation; Z86.718 Personal history of other venous thrombosis and embolism; W18.30XA Fall on same level, unspecified, initial encounter; Z91.81 History of falling; Z90.710 Acquired absence of both cervix and uterus; Z90.49 Acquired absence of other specified parts of digestive tract; E78.2 Mixed hyperlipidemia; E03.9 Hypothyroidism, unspecified; I87.2 Venous insufficiency (chronic) (peripheral); N18.3 Chronic kidney disease, stage 3 (moderate); D63.1 Anemia in chronic kidney disease; N28.9 Disorder of kidney and ureter, unspecified; Z79.01 Long term (current) use of anticoagulants; Z79.890 Hormone replacement therapy; Z79.899 Other long term (current) drug therapy; E86.0 Dehydration; J44.9 Chronic obstructive pulmonary disease, unspecified; Z88.8 Allergy status to other drugs, medicaments and biological substances; Z79.02 Long term (current) use of antithrombotics/antiplatelets; Z96.642 Presence of left artificial hip joint; Z87.891 Personal history of nicotine dependence
CPT/HCPCS: 36415; 70450; 70486; 71045; 72125; 76377; 80048; 80053; 80076; 81003; 82805; 83735; 83880; 84443; 84484; 85025; 85610; 87086; 87088; 93005; 93880; 94760; 97112; 97116; 97161; 99285; J1160; J7030